=== PATIENT | male | born 1975 | race Caucasian/White ===

== ENCOUNTER 2017-12-06 17:26 | Emergency (ER) | payer OTHER ==
[~2017-12-06] VITALS: Ht 177.8 cm; Wt 80.0 kg
[2017-12-06] MEDS ORDERED: LORazepam 1 MG tablet PO ONE (17:45)
[2017-12-06] MEDS ORDERED: ketorolac trometh inj. 60 MG/2 ML VIAL IM ONE (17:45)
[2017-12-06 18:09] LABS: INR 0.9 INR; PARTIAL THROMBOPLASTIN TIME 25 SECONDS (22-32); PROTHROMBIN TIME 9.2 SECONDS (9.0-12.0)
[2017-12-06 18:15] LABS: ALANINE AMINOTRANSFERASE 110 U/L (12-78); ALBUMIN 4.2 G/DL (3.4-5.0); ALBUMIN/GLOBULIN RATIO 1.2 (1.1-1.5); ALKALINE PHOSPHATASE 75 IU/L (46-116); ANION GAP 14 (8-16); ASPARTATE AMINO TRANSFERASE 121 U/L (10-37); BILIRUBIN,TOTAL 0.5 MG/DL (0.1-1.0); BLOOD UREA NITROGEN 12 MG/DL (7-18); CALCIUM 9.2 MG/DL (8.5-10.1); CHLORIDE 103 MMOL/L (99-107); CREATININE 0.86 MG/DL (0.60-1.10); GLUCOSE 101 MG/DL (70-104); POTASSIUM 3.5 MMOL/L (3.5-5.1); SODIUM 142 MMOL/L (135-145); TOTAL PROTEIN 7.7 G/DL (6.4-8.2); eGFR > 90 ML/MIN
[2017-12-06 18:24] LABS: BASOPHILS # (AUTO) 0.1 X10'3 (0-0.2); BASOPHILS % (AUTO) 0.6 % (0-1); EOSINOPHILS # (AUTO) 0.1 X10'3 (0-0.9); EOSINOPHILS % (AUTO) 0.6 % (0-6); HEMATOCRIT 47.9 % (42.0-52.0); HEMOGLOBIN 16.2 g/dl (14.0-17.9); LYMPHOCYTES # (AUTO) 2.1 X10'3 (1.1-4.8); LYMPHOCYTES % (AUTO) 20.7 % (21-51); MEAN CORPUSCULAR HEMOGLOBIN 33.6 PG (27.0-31.0); MEAN CORPUSCULAR HGB CONC 33.8 % (33.0-36.5); MEAN CORPUSCULAR VOLUME 99.3 FL (78-98); MEAN PLATELET VOLUME 7.9 FL (7.4-10.4); MONOCYTES # (AUTO) 0.6 X10'3 (0-0.9); MONOCYTES % (AUTO) 5.7 % (2-12); NEUTROPHILS # (AUTO) 7.3 X10'3 (1.8-7.7); NEUTROPHILS % (AUTO) 72.4 % (42-75); PLATELET COUNT 124 X10'3 (140-440); RED BLOOD COUNT 4.82 X10'6 (4.70-6.10); RED CELL DISTRIBUTION WIDTH 12.7 % (11.5-14.5); WHITE BLOOD COUNT 10.2 X10'3 (4.5-11.0)
[2017-12-06] MEDS ORDERED: OMEP40CA37 PO (19:04)
[2017-12-06] MEDS ORDERED: AZIT-63 PO (19:11)
[2017-12-06 19:25] VITALS: BP 127/77
== END 2017-12-06 19:27 | disposition home or self-care (01) ==
LOC: ER 17:26
DX: R07.9 Chest pain, unspecified (principal); R10.10 Upper abdominal pain, unspecified; J44.9 Chronic obstructive pulmonary disease, unspecified; Z79.899 Other long term (current) drug therapy
CPT/HCPCS: 36415; 71045; 80053; 84484; 85025; 85610; 85730; 93005; 96372; 99285; J1885

== ENCOUNTER 2021-03-27 15:46 | Inpatient (IN) | payer BC, OTHER ==
[~2021-03-27] VITALS: Ht 175.3 cm; Wt 85.3 kg
[~2021-03-27 15:46] MED LIST: APIX5TAB5 PO; DIGO250T4 PO; FURO-149 PO; FURO40TA4 PO; LISI2.5T14 PO; METO-395 PO; OMEP40CA21 PO
[2021-03-27 16:32] LABS: ALBUMIN 3.6 G/DL (3.4-5.0); ANION GAP 15 (8-16); BLOOD UREA NITROGEN 10 MG/DL (7-18); BUN/CREATININE RATIO 10.9 (5.4-32.0); CALCIUM 8.8 MG/DL (8.5-10.1); CHLORIDE 103 MMOL/L (99-107); CREATININE 0.92 MG/DL (0.60-1.10); GLUCOSE 101 MG/DL (70-104); POTASSIUM 3.8 MMOL/L (3.5-5.1); SODIUM 145 MMOL/L (135-145); TOTAL CARBON DIOXIDE 26.8 MMOL/L (24-32); eGFR 90 ML/MIN
[2021-03-27] MEDS ORDERED: diltiazem 5mg/ml 5ml inj. IV ONE (16:35)
[2021-03-27 17:17] LABS: BASOPHILS % (AUTO) 0.7 % (0-1); EOSINOPHILS % (AUTO) 0.2 % (0-6); HEMATOCRIT 43.4 % (42.0-52.0); HEMOGLOBIN 14.4 g/dl (14.0-17.9); LYMPHOCYTES # (AUTO) 1.6 X10'3 (1.1-4.8); LYMPHOCYTES % (AUTO) 25.3 % (21-51); MEAN CORPUSCULAR HEMOGLOBIN 33.4 PG (27.0-31.0); MEAN CORPUSCULAR HGB CONC 33.2 g/dL (33.0-36.5); MEAN CORPUSCULAR VOLUME 100.7 FL (78-98); MEAN PLATELET VOLUME 8.6 FL (7.4-10.4); MONOCYTES # (AUTO) 0.4 X10'3 (0-0.9); MONOCYTES % (AUTO) 6.4 % (2-12); NEUTROPHILS # (AUTO) 4.4 X10'3 (1.8-7.7); NEUTROPHILS % (AUTO) 67.4 % (42-75); PLATELET COUNT 288 X10'3 (140-440); RED BLOOD COUNT 4.31 X10'6 (4.70-6.10); RED CELL DISTRIBUTION WIDTH 16.5 % (11.5-14.5); WHITE BLOOD COUNT 6.5 X10'3 (4.5-11.0)
[2021-03-27] MEDS ORDERED: diltiazem-NS 100mg/100ml 100 ML IV SCH (18:25)
--- NOTE | 2021-03-27 20:04 | NUR ---
MD notified of Cardizem increase and lack of effectiveness. MD instructed to turn IV back to 5.
--- NOTE | 2021-03-27 20:56 | NUR ---
Patient complaining of nausea. He states his home cardizem makes him nauseaus as well. Cardizem stopped. Pt states he is an alcoholic and drinks daily. He says his last drink was approx 1300 today.
[2021-03-27] MEDS ORDERED: temazepam 15mg capsule PO PRN (21:00)
[2021-03-27] MEDS ORDERED: ondansetron/PF 4mg/2ml inj IV ONE (21:05)
[2021-03-27] MEDS ORDERED: ondansetron 4mg rapidly disintigrating tab PO PRN (21:20)
[2021-03-27] MEDS ORDERED: morphine 2 MG/ML inj. syringe IV PRN ×2 (21:20)
[2021-03-27] MEDS ORDERED: haloperidol 5mg tablet PO PRN (21:20)
[2021-03-27] MEDS ORDERED: haloperidol lactate 5mg/ml inj IM PRN (21:20)
[2021-03-27] MEDS ORDERED: HYDROcodone/acetaminophen 5mg/325mg tablet PO PRN (21:20)
[2021-03-27] MEDS: dextrose 5%-1/2 normal saline 1,000 ML IV SCH (21:20)
[2021-03-27] MEDS ORDERED: diphenhydrAMINE 25mg capsule PO PRN (21:20)
[2021-03-27] MEDS ORDERED: mag hydrox/Alum hydrox/simeth 30ml oral suspension PO PRN ×2 (21:20)
[2021-03-27] MEDS ORDERED: diphenhydrAMINE 50 mg/ml inj IV PRN (21:20)
[2021-03-27] MEDS ORDERED: magnesium hydroxide 30ml (MOM) UD suspension PO PRN (21:20)
[2021-03-27] MEDS ORDERED: loperamide 2mg capsule PO PRN (21:20)
[2021-03-27] MEDS ORDERED: HYDROcodone/acetaminophen 10/325mg tab PO PRN (21:20)
[2021-03-27] MEDS ORDERED: bisacodyl 10mg suppository rectal RC PRN (21:20)
[2021-03-27] MEDS ORDERED: acetaminophen 325mg tablet PO PRN ×2 (21:20)
[2021-03-27] MEDS ORDERED: ondansetron/PF 4mg/2ml inj IV PRN (21:20)
[2021-03-27] MEDS ORDERED: acetaminophen 650mg rectal suppository RC PRN (21:20)
[2021-03-27] MEDS ORDERED: cyclobenzaprine 10mg tablet PO PRN (21:20)
[2021-03-27] MEDS ORDERED: dextrose 50%-water 50ml dispensing syringe IV PRN (21:20)
[2021-03-27 21:59] LABS: URINE AMPHETAMINE SCREEN NEGATIVE (Neg); URINE BARBITUATE SCREEN NEGATIVE (Neg); URINE BENZODIAZEPINES SCREEN POSITIVE (Neg); URINE CANNABINOID SCREEN POSITIVE (Neg); URINE COCAINE SCREEN NEGATIVE (Neg); URINE METHADONE SCREEN NEGATIVE (Neg); URINE OPIATE SCREEN NEGATIVE (Neg); URINE PHENCYCLIDINE SCREEN NEGATIVE (Neg)
[2021-03-27 22:03] LABS: CLARITY,URINE CLOUDY (Clear); COLOR,URINE DARK YELLOW (Yellow); UA COLLECTION TYPE CLN CATCH MIDSTREAM
[2021-03-27 22:04] LABS: GLUCOSE, URINE NEGATIVE (Neg); KETONES,URINE NEGATIVE (Neg); LEUKOCYTE ESTERASE ,URINE NEGATIVE (Neg); NITRITES, URINE NEGATIVE (Neg); OCCULT BLOOD,URINE NEGATIVE (Neg); PROTEIN,URINE >=300 mg/dl (Neg)
[2021-03-27 22:09] LABS: BACTERIA,URINE 1+ /HPF (Neg); MUCUS STRANDS MANY /LPF (Neg); RBC,URINE NONE SEEN /HPF (0-2); SQUAMOUS EPITHELIAL CELL,UR MANY /LPF (FEW); WBC,URINE 0-4 /HPF (0-4)
[2021-03-27 22:10] LABS: AMORPHOUS URATES 4+
[2021-03-27 22:11] LABS: PARTIAL THROMBOPLASTIN TIME 28 SECONDS (22-32)
[2021-03-27] MEDS: LORazepam 2 mg/ml vial IV PRN ×2 (22:39→23:39)
[2021-03-27 23:46] LABS: CREATINE KINASE 74 U/L (39-308); ETHANOL 0.196 GM/DL (0.0-0.010); LIPASE 70 U/L (73-393); MAGNESIUM 1.3 MG/DL (1.5-2.4); PHOSPHORUS 4.8 MG/DL (2.3-4.5)
[2021-03-28] MEDS ORDERED: metoprolol tartrate 1mg/ml inj IV SCH (00:25)
[2021-03-28] MEDS ORDERED: ringers solution, lactated 1000ml IV soln IV ONE (00:25)
[2021-03-28] MEDS ORDERED: LIDOcaine 2% 10ml TOPICAL JELLY (Urojet) TP ONE ×2 (00:25→20:45)
[2021-03-28] MEDS: metoprolol tartrate 1mg/ml inj IV PRN ×2 (01:10→11:07)
--- NOTE | 2021-03-28 01:46 | NUR ---
Pt produced approx 50 ml of dark urine
[2021-03-28] MEDS ORDERED: magnesium 4gm in 100ml NS 100 ML IV PRN (02:30)
[2021-03-28] MEDS ORDERED: magnesium Cl slow-release 64mg tablet PO PRN (02:30)
[2021-03-28] MEDS ORDERED: magnesium 2GM in 50ml NS 50 ML IV PRN (02:30)
[2021-03-28] MEDS: LORazepam 2 mg/ml vial IV PRN ×6 (02:31→22:37)
[2021-03-28] MEDS ORDERED: digoxin 250mcg/ml 2ml ampule IV ONE ×2 (02:45→23:15)
--- NOTE | 2021-03-28 02:52 | NUR ---
Pt declines Palma if not absolutely necessary.
[2021-03-28] MEDS: docusate sod 100mg capsule PO SCH ×2 (07:27→20:00)
[2021-03-28] MEDS: folic acid 1mg tablet PO SCH (07:30)
[2021-03-28] MEDS: nicotine 21mg patch - 24 hr TD SCH (07:30)
[2021-03-28] MEDS: multivitamins, therapeutics tablet PO SCH (07:30)
[2021-03-28] MEDS: thiamine 100mg tablet PO SCH (07:31)
[2021-03-28] MEDS ORDERED: heparin, porcine 5000 units/ml vial SQ SCH (08:00)
[2021-03-28] MEDS ORDERED: folic acid inj. 2 MG, thiamine inj. 100 MG, MVI, adult No.4 with vit. K 10 ML in dextro... IV SCH ×4 (08:00)
[2021-03-28 09:37] LABS: D-DIMER 1.59 MG/L FEU (0-0.50)
[2021-03-28 09:42] LABS: ALANINE AMINOTRANSFERASE 103 U/L (12-78); ALBUMIN 3.1 G/DL (3.4-5.0); ALBUMIN/GLOBULIN RATIO 0.9 (1.1-1.5); ALKALINE PHOSPHATASE 95 IU/L (46-116); ANION GAP 11 (8-16); ASPARTATE AMINO TRANSFERASE 243 U/L (10-37); BASOPHILS # (AUTO) 0.1 X10'3 (0-0.2); BILIRUBIN,TOTAL 1.9 MG/DL (0.1-1.0); BLOOD UREA NITROGEN 10 MG/DL (7-18); BUN/CREATININE RATIO 13.9 (5.4-32.0); CALCIUM 8.1 MG/DL (8.5-10.1); CHLORIDE 107 MMOL/L (99-107); CREATININE 0.72 MG/DL (0.60-1.10); GLUCOSE 84 MG/DL (70-104); HEMOGLOBIN 13.5 g/dl (14.0-17.9); LYMPHOCYTES # (AUTO) 1.5 X10'3 (1.1-4.8); MEAN CORPUSCULAR HGB CONC 33.6 g/dL (33.0-36.5); MONOCYTES # (AUTO) 0.8 X10'3 (0-0.9); NEUTROPHILS # (AUTO) 4.5 X10'3 (1.8-7.7); POTASSIUM 3.9 MMOL/L (3.5-5.1); RED BLOOD COUNT 3.97 X10'6 (4.70-6.10); SODIUM 141 MMOL/L (135-145); TOTAL CARBON DIOXIDE 23.3 MMOL/L (24-32); TOTAL PROTEIN 6.4 G/DL (6.4-8.2); eGFR > 90 ML/MIN
[2021-03-28 09:46] LABS: BASOPHILS % (AUTO) 1.6 % (0-1); CHOL/HDL RATIO 3.3 (0.00-4.99); CHOLESTEROL 149 MG/DL (0-200); EOSINOPHILS % (AUTO) 0.3 % (0-6); HDL CHOLESTEROL 45 MG/DL (35-60); HEMATOCRIT 40.2 % (42.0-52.0); LDL CHOLESTEROL 100 MG/DL (50-100); LYMPHOCYTES % (AUTO) 21.6 % (21-51); MEAN CORPUSCULAR HEMOGLOBIN 34.1 PG (27.0-31.0); MEAN CORPUSCULAR VOLUME 101.3 FL (78-98); MEAN PLATELET VOLUME 8.7 FL (7.4-10.4); MONOCYTES % (AUTO) 11.5 % (2-12); PLATELET COUNT 229 X10'3 (140-440); RED CELL DISTRIBUTION WIDTH 16.5 % (11.5-14.5); TRIGLYCERIDES 69 MG/DL (20-135)
--- NOTE | 2021-03-28 10:44 | NUR ---
Dr. Dasilva notified of pt not tolerating cardizem asked for alternative. Order given to admin 5 mg of lopressor
[2021-03-28] MEDS ORDERED: DIGO250T2 PO (12:09)
[2021-03-28] MEDS ORDERED: DILT-36 PO (12:09)
[2021-03-28] MEDS ORDERED: LISI2.5T89 PO (12:09)
[2021-03-28] MEDS ORDERED: METO-384 PO (12:09)
[2021-03-28] MEDS: digoxin 250mcg (0.25mg) tablet PO SCH (12:55)
[2021-03-28] MEDS: furosemide 40mg tablet PO SCH (12:56)
[2021-03-28] MEDS: lisinopril 2.5mg tablet PO SCH (12:56)
[2021-03-28] MEDS: dextrose 5%-1/2 normal saline 1,000 ML IV SCH (17:26)
[2021-03-28] MEDS ORDERED: amiodarone 50MG/ML inj IV ONE (20:45)
[2021-03-28] MEDS: apixaban 5mg tablet PO SCH (20:53)
[2021-03-28] MEDS ORDERED: amiodarone 150mg/dext, iso-os 100 ML IV ONE (20:55)
[2021-03-28 23:09] LABS: CREATINE KINASE 82 U/L (39-308); MAGNESIUM 1.7 MG/DL (1.5-2.4); PHOSPHORUS 3.6 MG/DL (2.3-4.5)
[2021-03-28 23:10] LABS: LIPASE 68 U/L (73-393); TROPONIN I < 0.04 NG/ML (0.0-0.05)
[2021-03-28] MEDS ORDERED: LORazepam 2 mg/ml vial IV ONE (23:15)
--- NOTE | 2021-03-29 00:02 | NUR ---
Pt report given to VIRGILIO Lira in PCU. Pt is in stable condition at this time. Pt's HR is currently 141 in afib with rvr, on 2L of O2 via NC sating at 93%. Pt was given 2mg of ativan at 2316, and 1mg of ativan 2342. No change in HR. In addition, 125mcg (0.5mL) of dixogin was given and still no change in HR. Dr. Monson paged several time, and the request of RN asked several times to place patient on an amiodarone drip. Dr. Coles has ignored my request.
[2021-03-29 00:38] VITALS: BP 142/85
[2021-03-29 07:17] LABS: BASOPHILS # (AUTO) 0.1 X10'3 (0-0.2); BASOPHILS % (AUTO) 0.8 % (0-1); EOSINOPHILS % (AUTO) 0.5 % (0-6); HEMATOCRIT 43.3 % (42.0-52.0); HEMOGLOBIN 14.6 g/dl (14.0-17.9); LYMPHOCYTES # (AUTO) 1.1 X10'3 (1.1-4.8); LYMPHOCYTES % (AUTO) 14.6 % (21-51); MEAN CORPUSCULAR HEMOGLOBIN 34.4 PG (27.0-31.0); MEAN CORPUSCULAR HGB CONC 33.8 g/dL (33.0-36.5); MEAN CORPUSCULAR VOLUME 101.8 FL (78-98); MEAN PLATELET VOLUME 9.3 FL (7.4-10.4); MONOCYTES # (AUTO) 0.8 X10'3 (0-0.9); MONOCYTES % (AUTO) 10.2 % (2-12); NEUTROPHILS # (AUTO) 5.7 X10'3 (1.8-7.7); NEUTROPHILS % (AUTO) 73.9 % (42-75); PLATELET COUNT 213 X10'3 (140-440); RED BLOOD COUNT 4.25 X10'6 (4.70-6.10); RED CELL DISTRIBUTION WIDTH 16.6 % (11.5-14.5); WHITE BLOOD COUNT 7.7 X10'3 (4.5-11.0)
[2021-03-29 07:31] LABS: ALANINE AMINOTRANSFERASE 97 U/L (12-78); ALKALINE PHOSPHATASE 91 IU/L (46-116); ANION GAP 10 (8-16); ASPARTATE AMINO TRANSFERASE 189 U/L (10-37); BILIRUBIN,TOTAL 2.9 MG/DL (0.1-1.0); BLOOD UREA NITROGEN 9 MG/DL (7-18); BUN/CREATININE RATIO 10.5 (5.4-32.0); CALCIUM 8.2 MG/DL (8.5-10.1); CHLORIDE 105 MMOL/L (99-107); CREATININE 0.86 MG/DL (0.60-1.10); GLUCOSE 85 MG/DL (70-104); MAGNESIUM 1.6 MG/DL (1.5-2.4); POTASSIUM 3.4 MMOL/L (3.5-5.1); SODIUM 143 MMOL/L (135-145); TOTAL CARBON DIOXIDE 28.5 MMOL/L (24-32); TOTAL PROTEIN 5.9 G/DL (6.4-8.2); eGFR > 90 ML/MIN
[2021-03-29] MEDS: multivitamins, therapeutics tablet PO SCH (08:08)
[2021-03-29] MEDS: lisinopril 2.5mg tablet PO SCH (08:09)
[2021-03-29] MEDS: furosemide 40mg tablet PO SCH (08:10)
[2021-03-29] MEDS: docusate sod 100mg capsule PO SCH ×2 (08:10→19:56)
[2021-03-29] MEDS: thiamine 100mg tablet PO SCH (08:10)
[2021-03-29] MEDS: apixaban 5mg tablet PO SCH ×2 (08:10→19:56)
[2021-03-29] MEDS: digoxin 250mcg (0.25mg) tablet PO SCH (08:11)
[2021-03-29] MEDS: folic acid 1mg tablet PO SCH (08:11)
[2021-03-29] MEDS: metoprolol succinate 25mg (24-HOUR) SR. Tablet PO SCH (08:12)
[2021-03-29] MEDS: lisinopril 5mg tablet PO SCH (09:50)
[2021-03-29 11:05] VITALS: BP 134/92
[2021-03-29] MEDS: LORazepam 2 mg/ml vial IV PRN (12:35)
[2021-03-29 18:00] VITALS: BP 129/89
[2021-03-29] MEDS ORDERED: LORazepam 1 MG tablet PO PRN (21:20)
[2021-03-29] MEDS ORDERED: LORazepam 2 mg/ml vial IV PRN (21:20)
[2021-03-29 22:00] VITALS: BP 114/75
[2021-03-30] MEDS ORDERED: potassium Cl 20 mEq SR tablet PO PRN (01:25)
[2021-03-30] MEDS ORDERED: potassium Cl 40MEQ/1/2NS 520ml 520 ML IV PRN (01:25)
[2021-03-30] MEDS ORDERED: magnesium 4gm in 100ml NS 100 ML IV PRN (01:25)
[2021-03-30] MEDS ORDERED: magnesium Cl slow-release 64mg tablet PO PRN ×2 (01:25→08:56)
[2021-03-30] MEDS: potassium Cl 20 mEq SR tablet PO PRN ×2 (02:40→06:35)
[2021-03-30 03:39] VITALS: BP 107/66
[2021-03-30 06:00] VITALS: BP 118/81
[2021-03-30 06:50] LABS: BASOPHILS # (AUTO) 0.1 X10'3 (0-0.2); BASOPHILS % (AUTO) 0.8 % (0-1); EOSINOPHILS # (AUTO) 0.1 X10'3 (0-0.9); EOSINOPHILS % (AUTO) 0.9 % (0-6); HEMATOCRIT 42.9 % (42.0-52.0); HEMOGLOBIN 14.3 g/dl (14.0-17.9); LYMPHOCYTES # (AUTO) 1.3 X10'3 (1.1-4.8); LYMPHOCYTES % (AUTO) 18.1 % (21-51); MEAN CORPUSCULAR HEMOGLOBIN 33.7 PG (27.0-31.0); MEAN CORPUSCULAR HGB CONC 33.3 g/dL (33.0-36.5); MEAN CORPUSCULAR VOLUME 101.3 FL (78-98); MEAN PLATELET VOLUME 8.6 FL (7.4-10.4); MONOCYTES # (AUTO) 0.7 X10'3 (0-0.9); MONOCYTES % (AUTO) 9.3 % (2-12); NEUTROPHILS % (AUTO) 70.9 % (42-75); PLATELET COUNT 204 X10'3 (140-440); RED BLOOD COUNT 4.24 X10'6 (4.70-6.10); RED CELL DISTRIBUTION WIDTH 16.7 % (11.5-14.5)
[2021-03-30 07:08] LABS: ALANINE AMINOTRANSFERASE 67 U/L (12-78); ALBUMIN 2.6 G/DL (3.4-5.0); ALBUMIN/GLOBULIN RATIO 0.9 (1.1-1.5); ALKALINE PHOSPHATASE 80 IU/L (46-116); ANION GAP 7 (8-16); ASPARTATE AMINO TRANSFERASE 93 U/L (10-37); BILIRUBIN,TOTAL 2.8 MG/DL (0.1-1.0); BLOOD UREA NITROGEN 9 MG/DL (7-18); BUN/CREATININE RATIO 10.7 (5.4-32.0); CALCIUM 7.8 MG/DL (8.5-10.1); CHLORIDE 106 MMOL/L (99-107); CREATININE 0.84 MG/DL (0.60-1.10); GLUCOSE 98 MG/DL (70-104); MAGNESIUM 1.3 MG/DL (1.5-2.4); POTASSIUM 3.5 MMOL/L (3.5-5.1); SODIUM 142 MMOL/L (135-145); TOTAL CARBON DIOXIDE 28.8 MMOL/L (24-32); TOTAL PROTEIN 5.4 G/DL (6.4-8.2); eGFR > 90 ML/MIN
[2021-03-30] MEDS: docusate sod 100mg capsule PO SCH (07:59)
[2021-03-30] MEDS: metoprolol succinate 25mg (24-HOUR) SR. Tablet PO SCH (07:59)
[2021-03-30] MEDS: multivitamins, therapeutics tablet PO SCH (07:59)
[2021-03-30] MEDS: nicotine 21mg patch - 24 hr TD SCH ×2 (07:59→08:03)
[2021-03-30 08:00] VITALS: BP_SYST 118
[2021-03-30] MEDS: furosemide 40mg tablet PO SCH (08:00)
[2021-03-30] MEDS ORDERED: K and/or MAG REPLACEMENT MC SCH (08:00)
[2021-03-30] MEDS: thiamine 100mg tablet PO SCH (08:00)
[2021-03-30] MEDS: lisinopril 5mg tablet PO SCH (08:00)
[2021-03-30] MEDS: folic acid 1mg tablet PO SCH (08:00)
[2021-03-30] MEDS: digoxin 250mcg (0.25mg) tablet PO SCH (08:01)
[2021-03-30] MEDS: apixaban 5mg tablet PO SCH (08:01)
[2021-03-30] MEDS ORDERED: metoprolol succinate 25mg (24-HOUR) SR. Tablet PO ONE (09:45)
--- NOTE | 2021-03-30 10:31 | NUR ---
Met with patient in regards to alcohol use. I asked patient if he is interested in treatment options but patient declined. Patient feels like he has support at home and doesn't need other sources at this time. I gave patient my card in case he changes his mind.
[2021-03-30] MEDS ORDERED: METO-384 PO (10:37)
--- NOTE | 2021-03-30 12:07 | NUR ---
patient stable and comfortable at discharge. Removed telemetry and PIV with cannula intact. No redness or irritation at PIV site. All belongings placed in bag and given to patient at discharge. Patient will pick out hand new medications at [facility]. Patient spoke with [facility] on the phone and medications are ready for pick out hand. Gave and discussed all patient information and patient education in detail. Patient was able to ask questions and receive answers about patient information and patient education. Patient was able to verbalize back all patient information and patient education. Patient was wheeled to lobby in wheelchair by staff member. Patient left hospital in private car with family member.
[2021-03-31] MEDS ORDERED: metoprolol succinate 25mg (24-HOUR) SR. Tablet PO SCH (08:00)
[2021-03-31] MEDS ORDERED: LORazepam 2 mg/ml vial IV PRN (21:20)
[2021-03-31] MEDS ORDERED: LORazepam 1 MG tablet PO PRN (21:20)
== END 2021-03-30 12:05 | disposition home or self-care (01) | DRG 309 ==
LOC: ER 15:47 → ED HOLD 21:27 → PCU 3S 03-29 00:15
PROVIDERS: ADMIT Family Medicine; ATTEND Internal Medicine
DX: I48.91 Unspecified atrial fibrillation (principal); I50.22 Chronic systolic (congestive) heart failure; F10.239 Alcohol dependence with withdrawal, unspecified; I42.0 Dilated cardiomyopathy; I42.6 Alcoholic cardiomyopathy; J44.9 Chronic obstructive pulmonary disease, unspecified; K70.10 Alcoholic hepatitis without ascites; F17.200 Nicotine dependence, unspecified, uncomplicated; F10.229 Alcohol dependence with intoxication, unspecified; E83.42 Hypomagnesemia; E86.1 Hypovolemia; R79.89 Other specified abnormal findings of blood chemistry; F12.10 Cannabis abuse, uncomplicated; Y90.6 Blood alcohol level of 120-199 mg/100 ml; I08.1 Rheumatic disorders of both mitral and tricuspid valves; Z82.49 Family history of ischemic heart disease and other diseases of the circulatory system; Z85.820 Personal history of malignant melanoma of skin; Z79.899 Other long term (current) drug therapy; Z80.8 Family history of malignant neoplasm of other organs or systems; Z83.3 Family history of diabetes mellitus; Z86.73 Personal history of transient ischemic attack (TIA), and cerebral infarction without residual deficits; Z79.01 Long term (current) use of anticoagulants; Z71.6 Tobacco abuse counseling; Z88.8 Allergy status to other drugs, medicaments and biological substances
CPT/HCPCS: 36415; 70450; 71045; 72125; 80048; 80053; 80061; 80162; 80305; 80320; 81001; 82550; 83036; 83605; 83690; 83735; 83880; 84100; 84443; 84484; 85025; 85379; 85610; 85730; 87081; 93005; 96361; 96365; 96376; 99291; G0378; J1160; J1644; J2060; J2405; J3475; J3490; J7120

== ENCOUNTER 2021-05-25 08:41 | Inpatient (IN) | payer MEDICAID ==
[~2021-05-25] VITALS: Ht 167.6 cm; Wt 92.3 kg
[~2021-05-25 08:41] MED LIST changes: +DIGO250T2 PO; -DIGO250T4 PO; -FURO-149 PO; -LISI2.5T14 PO; +LISI2.5T89 PO; +METO-384 PO; -METO-395 PO; +MULT-25 PO; +POTA-207 PO; +folic acid tablet PO; +thiamine tablet PO
[2021-05-25] MEDS ORDERED: furosemide 10 MG/1 ML 10ml inj IV ONE ×2 (08:50→20:10)
[2021-05-25] MEDS ORDERED: digoxin 250mcg/ml 2ml ampule IV ONE (09:05)
[2021-05-25 09:13] LABS: BASOPHILS # (AUTO) 0.1 X10'3 (0-0.2); BASOPHILS % (AUTO) 0.9 % (0-1); EOSINOPHILS # (AUTO) 0.1 X10'3 (0-0.9); EOSINOPHILS % (AUTO) 0.7 % (0-6); HEMATOCRIT 42.1 % (42.0-52.0); HEMOGLOBIN 14.2 g/dl (14.0-17.9); LYMPHOCYTES # (AUTO) 1.2 X10'3 (1.1-4.8); LYMPHOCYTES % (AUTO) 18.1 % (21-51); MEAN CORPUSCULAR HEMOGLOBIN 34.4 PG (27.0-31.0); MEAN CORPUSCULAR HGB CONC 33.8 g/dL (33.0-36.5); MEAN CORPUSCULAR VOLUME 101.9 FL (78-98); MONOCYTES # (AUTO) 0.6 X10'3 (0-0.9); MONOCYTES % (AUTO) 9.5 % (2-12); NEUTROPHILS # (AUTO) 4.8 X10'3 (1.8-7.7); NEUTROPHILS % (AUTO) 70.8 % (42-75); PLATELET COUNT 348 X10'3 (140-440); RED BLOOD COUNT 4.13 X10'6 (4.70-6.10); RED CELL DISTRIBUTION WIDTH 16.7 % (11.5-14.5); WHITE BLOOD COUNT 6.7 X10'3 (4.5-11.0)
[2021-05-25 09:21] LABS: ALANINE AMINOTRANSFERASE 21 U/L (12-78); ALBUMIN/GLOBULIN RATIO 0.9 (1.1-1.5); ALKALINE PHOSPHATASE 91 IU/L (46-116); ANION GAP 6 (8-16); ASPARTATE AMINO TRANSFERASE 16 U/L (10-37); BILIRUBIN,TOTAL 1.2 MG/DL (0.1-1.0); BLOOD UREA NITROGEN 17 MG/DL (7-18); BUN/CREATININE RATIO 18.1 (5.4-32.0); CALCIUM 8.8 MG/DL (8.5-10.1); CHLORIDE 100 MMOL/L (99-107); CREATININE 0.94 MG/DL (0.60-1.10); GLUCOSE 109 MG/DL (70-104); POTASSIUM 4.4 MMOL/L (3.5-5.1); SODIUM 136 MMOL/L (135-145); TOTAL CARBON DIOXIDE 30.4 MMOL/L (24-32); TOTAL PROTEIN 6.4 G/DL (6.4-8.2); eGFR 88 ML/MIN
[2021-05-25] MEDS ORDERED: amiodarone 150mg/dext, iso-os 100 ML IV ONE (09:50)
[2021-05-25] MEDS: amiodarone/D5 360MG/200ML BAG 200 ML IV SCH ×3 (10:41→23:46)
[2021-05-25] MEDS ORDERED: metoprolol tartrate 1mg/ml inj IV ONE (10:55)
[2021-05-25] MEDS ORDERED: ESCI5TAB17 PO (12:16)
[2021-05-25] MEDS ORDERED: POTA-82 PO (12:16)
[2021-05-25] MEDS ORDERED: HYDR-3686 PO (12:16)
[2021-05-25] MEDS ORDERED: FURO40TA4 PO (12:16)
[2021-05-25] MEDS ORDERED: APIX5TAB3 PO (12:29)
[2021-05-25] MEDS ORDERED: ondansetron 4mg rapidly disintigrating tab PO PRN (13:00)
[2021-05-25] MEDS ORDERED: acetaminophen 325mg tablet PO PRN (13:00)
[2021-05-25] MEDS ORDERED: magnesium 4gm in 100ml NS 100 ML IV PRN (13:00)
[2021-05-25] MEDS ORDERED: magnesium Cl slow-release 64mg tablet PO PRN (13:00)
[2021-05-25] MEDS ORDERED: ondansetron/PF 4mg/2ml inj IV PRN (13:00)
[2021-05-25] MEDS ORDERED: potassium CL 10mEq/100ml bag 100 ML IV PRN (13:00)
[2021-05-25] MEDS ORDERED: magnesium 2GM in 50ml NS 50 ML IV PRN (13:00)
[2021-05-25] MEDS ORDERED: potassium Cl 20 mEq SR tablet PO PRN ×2 (13:00)
[2021-05-25 13:23] LABS: MAGNESIUM 1.7 MG/DL (1.5-2.4)
[2021-05-25] MEDS: metoprolol succinate 25mg (24-HOUR) SR. Tablet PO SCH (17:24)
--- NOTE | 2021-05-25 19:56 | NUR ---
PT COMPLAINING OF ANXIETY. HEART RATE IS STILL RAPID. PAGED DR JONES.
[2021-05-25] MEDS: K and/or MAG REPLACEMENT MC SCH (19:57)
--- NOTE | 2021-05-25 19:58 | NUR ---
DR JONES PAGED AT 2000 TO TALK TO KURT POOLE
[2021-05-25 20:00] VITALS: BP_SYST 0
[2021-05-26] VITALS (8 sets, daily range): BP systolic 0–145; BP diastolic 72–90
[2021-05-26 01:04] LABS: BASOPHILS # (AUTO) 0.1 X10'3 (0-0.2); BASOPHILS % (AUTO) 1.2 % (0-1); EOSINOPHILS % (AUTO) 0.3 % (0-6); HEMATOCRIT 43.7 % (42.0-52.0); HEMOGLOBIN 14.8 g/dl (14.0-17.9); LYMPHOCYTES # (AUTO) 1.2 X10'3 (1.1-4.8); LYMPHOCYTES % (AUTO) 15.4 % (21-51); MEAN CORPUSCULAR HGB CONC 33.8 g/dL (33.0-36.5); MEAN CORPUSCULAR VOLUME 100.8 FL (78-98); MEAN PLATELET VOLUME 9.4 FL (7.4-10.4); MONOCYTES # (AUTO) 0.7 X10'3 (0-0.9); MONOCYTES % (AUTO) 8.6 % (2-12); NEUTROPHILS # (AUTO) 5.8 X10'3 (1.8-7.7); NEUTROPHILS % (AUTO) 74.5 % (42-75); PLATELET COUNT 381 X10'3 (140-440); RED BLOOD COUNT 4.34 X10'6 (4.70-6.10); RED CELL DISTRIBUTION WIDTH 16.3 % (11.5-14.5); WHITE BLOOD COUNT 7.7 X10'3 (4.5-11.0)
[2021-05-26 01:25] LABS: ALBUMIN 3.2 G/DL (3.4-5.0); ANION GAP 8 (8-16); BLOOD UREA NITROGEN 16 MG/DL (7-18); CALCIUM 8.9 MG/DL (8.5-10.1); CHLORIDE 97 MMOL/L (99-107); CREATININE 1.07 MG/DL (0.60-1.10); GLUCOSE 99 MG/DL (70-104); MAGNESIUM 1.6 MG/DL (1.5-2.4); SODIUM 134 MMOL/L (135-145); TOTAL CARBON DIOXIDE 29.1 MMOL/L (24-32); eGFR 75 ML/MIN
--- NOTE | 2021-05-26 02:57 | NUR ---
Recieved report from Lia POOLE, Pt arrived to the unit via gurney. Pt is laying in bed in no apparaent distress, vitals were taking and connected to tele monitor.
[2021-05-26] MEDS: amiodarone/D5 360MG/200ML BAG 200 ML IV SCH ×4 (04:25→22:33)
--- NOTE | 2021-05-26 05:52 | NUR ---
Did not do the orthostatic vitals due at 1999 because pt was in ER. Will leave sign on door.
--- NOTE | 2021-05-26 06:12 | NUR ---
Problems reprioritized. Patient report given, questions answered & plan of care reviewed with Marielle POOLE.
[2021-05-26] MEDS: K and/or MAG REPLACEMENT MC SCH ×2 (08:00→20:00)
[2021-05-26] MEDS: furosemide 40mg/4ml inj IV SCH ×2 (08:40→19:42)
[2021-05-26] MEDS: metoprolol succinate 25mg (24-HOUR) SR. Tablet PO SCH (08:42)
[2021-05-26] MEDS: apixaban 5mg tablet PO SCH ×2 (08:42→19:42)
--- NOTE | 2021-05-26 14:44 | NUR ---
PAGER ID: [phone] MESSAGE: [phone] Manuelito Corral- States you said you were going to order him a paracentesis? Marielle [id number]
--- NOTE | 2021-05-26 16:01 | NUR ---
PAGER ID: [phone] MESSAGE: [phone] Manuelito Corral- Pt vomitted. Zofran ODT ineffective. Requests paracentesis. Marielle [phone]
--- NOTE | 2021-05-26 17:00 | NUR ---
PAGER ID: [phone] MESSAGE: [phone] Manuelito Corral- Pt c/o having difficulty breathing and increased edematous BLE and abdomen. Marielle [phone]
--- NOTE | 2021-05-26 17:15 | NUR ---
Patient states he is having an anxiety attack. He states he has felt this way in the past and when he feels this way he wants to shoot himself in the head. Dr. Dasilva paged and order placed for social service consult. Charge nurse informed.
--- NOTE | 2021-05-26 17:16 | NUR ---
PAGER ID: [phone] MESSAGE: [phone] Manuelito Corral- Keenan Palomares [phone]
--- NOTE | 2021-05-26 17:27 | NUR ---
PAGER ID: [phone] MESSAGE: [phone] Manuelito Corral- Having anxiety attack with suicidal ideations. Marielle [phone]
--- NOTE | 2021-05-26 17:32 | NUR ---
Dr. aDsilva called back. Order placed for social worker delinquency prevention, sitter, and Ativan 1mg q8 PRN.
[2021-05-26] MEDS: LORazepam 2 mg/ml vial IV PRN (17:48)
--- NOTE | 2021-05-26 18:22 | NUR ---
Problems reprioritized. Patient report given, questions answered & plan of care reviewed with Jesica POOLE.
[2021-05-27 02:00] VITALS: BP 127/91
[2021-05-27] MEDS: LORazepam 2 mg/ml vial IV PRN (02:13)
[2021-05-27] MEDS: amiodarone/D5 360MG/200ML BAG 200 ML IV SCH ×2 (04:25→10:25)
--- NOTE | 2021-05-27 06:30 | NUR ---
Problems reprioritized. Patient report given, questions answered & plan of care reviewed with Estephanie POOLE.
--- NOTE | 2021-05-27 06:37 | NUR ---
Patient in room PCU 3012. I have received report from Jesica POOLE and had the opportunity to ask questions and assume patient care. Pt semi fowlers in bed, chest rising and falling evenly. sitter at bedside. safety measures in place. no s/sx acute distress
[2021-05-27 06:41] LABS: ALBUMIN 2.6 G/DL (3.4-5.0); ANION GAP 6 (8-16); BLOOD UREA NITROGEN 21 MG/DL (7-18); BUN/CREATININE RATIO 19.3 (5.4-32.0); CALCIUM 8.1 MG/DL (8.5-10.1); CHLORIDE 100 MMOL/L (99-107); CREATININE 1.09 MG/DL (0.60-1.10); GLUCOSE 90 MG/DL (70-104); MAGNESIUM 1.5 MG/DL (1.5-2.4); POTASSIUM 3.7 MMOL/L (3.5-5.1); SODIUM 136 MMOL/L (135-145); TOTAL CARBON DIOXIDE 29.6 MMOL/L (24-32); eGFR 74 ML/MIN
[2021-05-27 06:44] LABS: BASOPHILS # (AUTO) 0.1 X10'3 (0-0.2); BASOPHILS % (AUTO) 1.1 % (0-1); EOSINOPHILS % (AUTO) 0.5 % (0-6); HEMATOCRIT 42.3 % (42.0-52.0); HEMOGLOBIN 14.2 g/dl (14.0-17.9); LYMPHOCYTES # (AUTO) 1.3 X10'3 (1.1-4.8); MEAN CORPUSCULAR HEMOGLOBIN 33.8 PG (27.0-31.0); MEAN CORPUSCULAR HGB CONC 33.6 g/dL (33.0-36.5); MEAN CORPUSCULAR VOLUME 100.7 FL (78-98); MEAN PLATELET VOLUME 9.1 FL (7.4-10.4); MONOCYTES # (AUTO) 0.8 X10'3 (0-0.9); MONOCYTES % (AUTO) 12.6 % (2-12); NEUTROPHILS # (AUTO) 4.5 X10'3 (1.8-7.7); NEUTROPHILS % (AUTO) 66.8 % (42-75); PLATELET COUNT 359 X10'3 (140-440); RED CELL DISTRIBUTION WIDTH 16.4 % (11.5-14.5); WHITE BLOOD COUNT 6.7 X10'3 (4.5-11.0)
[2021-05-27 07:00] VITALS: BP 113/82
[2021-05-27] MEDS: K and/or MAG REPLACEMENT MC SCH (08:00)
--- NOTE | 2021-05-27 08:00 | NUR ---
spoke openly with pt. Pt endorses "fine" mood, and is engaged in conversation with the sitter and this nurse. pt denies SI. "no i don't. honestly that was just a joke yesterday when i said it." pt speaks openly about health status and ETOH cessation x 1 month. pt endorses strong support system. sitter at bedside. no s/sx acute distress
[2021-05-27] MEDS: furosemide 40mg/4ml inj IV SCH (08:13)
[2021-05-27] MEDS: metoprolol succinate 25mg (24-HOUR) SR. Tablet PO SCH (08:13)
[2021-05-27] MEDS: apixaban 5mg tablet PO SCH (08:13)
[2021-05-27 11:00] VITALS: BP 99/57
[2021-05-27] MEDS ORDERED: METO-395 PO (12:36)
[2021-05-27 13:00] VITALS: BP 113/94
[2021-05-27 13:47] VITALS: BP 134/75
[2021-05-27 15:00] VITALS: BP 108/80
--- NOTE | 2021-05-27 16:50 | NUR ---
Pt stated he has no lasix supply at home. lasix on discharge med list. Dr. Dasilva notified and asked if 30 day supply could be called in for the pt. awaiting response from Dr. Dasilva
--- NOTE | 2021-05-27 17:00 | NUR ---
pt stable for transfer per MD order All discharge instructions reviewed with pt. all questions answered. follow up appointment with Dr. Pike to be made by pt. pt has preexisting appt with PCP on the . New rx escripted to [facility]. PIC discontinued. cannula intact. tele monitor discontinued. belongings collected and sent with pt including cell phone and branch chief. pt wheeled to the lobby without s/sx acute distress where he loaded into his mom's car and left [facility].
[2021-05-27] MEDS ORDERED: LISI2.5T14 PO (17:23)
[2021-05-27] MEDS ORDERED: DIGO-20 PO (17:23)
[2021-05-27] MEDS ORDERED: APIX5TAB3 PO (17:24)
[2021-05-27] MEDS ORDERED: POTA-207 PO (17:25)
[2021-05-27] MEDS ORDERED: FURO-149 PO (17:25)
== END 2021-05-27 17:01 | disposition home or self-care (01) | DRG 194 ==
LOC: ER 08:42 → ED HOLD 13:04 → PCU 3S 05-26 03:41
PROVIDERS: ADMIT Internal Medicine; ATTEND Internal Medicine
PROC: 0W9G3ZZ Drainage of Peritoneal Cavity, Percutaneous Approach (ICD-10-PCS; principal; 2021-05-27)
DX: I50.23 Acute on chronic systolic (congestive) heart failure (principal); K70.31 Alcoholic cirrhosis of liver with ascites; I95.9 Hypotension, unspecified; I42.9 Cardiomyopathy, unspecified; I48.20 Chronic atrial fibrillation, unspecified; E78.00 Pure hypercholesterolemia, unspecified; E78.5 Hyperlipidemia, unspecified; F10.21 Alcohol dependence, in remission; F17.210 Nicotine dependence, cigarettes, uncomplicated; J44.9 Chronic obstructive pulmonary disease, unspecified; N18.9 Chronic kidney disease, unspecified; N50.89 Other specified disorders of the male genital organs; Z80.8 Family history of malignant neoplasm of other organs or systems; Z82.49 Family history of ischemic heart disease and other diseases of the circulatory system; Z83.3 Family history of diabetes mellitus; Z91.14 Patient's other noncompliance with medication regimen; Z79.899 Other long term (current) drug therapy; Z88.8 Allergy status to other drugs, medicaments and biological substances; Z71.6 Tobacco abuse counseling
CPT/HCPCS: 36415; 49083; 71045; 80048; 80053; 80162; 82140; 83735; 83880; 84484; 85025; 85610; 86885; 86900; 86901; 87081; 93005; 97110; 97161; 97530; 99291; G0378; J0282; J1160; J1940; J2060; J2405; J3490

== ENCOUNTER 2021-06-15 07:17 | Inpatient (IN) | payer MEDICAID ==
[~2021-06-15] VITALS: Ht 170.2 cm; Wt 81.8 kg
[~2021-06-15 07:17] MED LIST changes: +APIX5TAB3 PO; -APIX5TAB5 PO; +DIGO-20 PO; -DIGO250T2 PO; +FURO-149 PO; -FURO40TA4 PO; +LISI2.5T14 PO; -LISI2.5T89 PO; -METO-384 PO; +METO-395 PO; -MULT-25 PO; -OMEP40CA21 PO; -folic acid tablet PO; -thiamine tablet PO
[2021-06-15] MEDS ORDERED: amiodarone/D5 360MG/200ML BAG 200 ML IV ONE (09:55)
--- NOTE | 2021-06-15 10:21 | NUR ---
PT REQUESTING WATER AND SOMETHING FOR HIS ANXIETY. PT GIVEN A PITCHER OF WATER AND DR MCCALL'S SCRIBE WAS ASKED TO NOTIFY DR MCCALL OF PT'S REQUEST FOR ANXIETY MEDICATION
[2021-06-15 10:26] LABS: URINE AMPHETAMINE SCREEN NEGATIVE (Neg); URINE BARBITUATE SCREEN NEGATIVE (Neg); URINE BENZODIAZEPINES SCREEN NEGATIVE (Neg); URINE CANNABINOID SCREEN POSITIVE (Neg); URINE COCAINE SCREEN NEGATIVE (Neg); URINE METHADONE SCREEN NEGATIVE (Neg); URINE OPIATE SCREEN NEGATIVE (Neg); URINE PHENCYCLIDINE SCREEN NEGATIVE (Neg)
[2021-06-15 10:31] LABS: BASOPHILS # (AUTO) 0.1 X10'3 (0-0.2); BASOPHILS % (AUTO) 1.1 % (0-1); EOSINOPHILS % (AUTO) 0.4 % (0-6); HEMATOCRIT 41.8 % (42.0-52.0); HEMOGLOBIN 13.9 g/dl (14.0-17.9); LYMPHOCYTES # (AUTO) 1.2 X10'3 (1.1-4.8); LYMPHOCYTES % (AUTO) 13.3 % (21-51); MEAN CORPUSCULAR HEMOGLOBIN 33.3 PG (27.0-31.0); MEAN CORPUSCULAR HGB CONC 33.2 g/dL (33.0-36.5); MEAN CORPUSCULAR VOLUME 100.2 FL (78-98); MEAN PLATELET VOLUME 8.7 FL (7.4-10.4); MONOCYTES # (AUTO) 0.7 X10'3 (0-0.9); MONOCYTES % (AUTO) 8.4 % (2-12); NEUTROPHILS # (AUTO) 6.7 X10'3 (1.8-7.7); NEUTROPHILS % (AUTO) 76.8 % (42-75); PLATELET COUNT 209 X10'3 (140-440); RED BLOOD COUNT 4.17 X10'6 (4.70-6.10); RED CELL DISTRIBUTION WIDTH 16.6 % (11.5-14.5); WHITE BLOOD COUNT 8.8 X10'3 (4.5-11.0)
[2021-06-15] MEDS ORDERED: amiodarone 150mg/dext, iso-os 100 ML IV ONE (10:35)
[2021-06-15 10:41] LABS: ALANINE AMINOTRANSFERASE 10 U/L (12-78); ALBUMIN 2.8 G/DL (3.4-5.0); ALBUMIN/GLOBULIN RATIO 0.9 (1.1-1.5); ALKALINE PHOSPHATASE 88 IU/L (46-116); ANION GAP 7 (8-16); ASPARTATE AMINO TRANSFERASE 23 U/L (10-37); BILIRUBIN,TOTAL 1.3 MG/DL (0.1-1.0); BLOOD UREA NITROGEN 13 MG/DL (7-18); BUN/CREATININE RATIO 18.3 (5.4-32.0); CALCIUM 8.6 MG/DL (8.5-10.1); CHLORIDE 102 MMOL/L (99-107); CREATININE 0.71 MG/DL (0.60-1.10); GLUCOSE 109 MG/DL (70-104); POTASSIUM 3.8 MMOL/L (3.5-5.1); SODIUM 138 MMOL/L (135-145); TOTAL CARBON DIOXIDE 29.2 MMOL/L (24-32); TOTAL PROTEIN 5.9 G/DL (6.4-8.2); eGFR > 90 ML/MIN
[2021-06-15 10:47] LABS: ETHANOL < 0.010 GM/DL (0.0-0.010); LIPASE 65 U/L (73-393)
[2021-06-15] MEDS ORDERED: FURO40TA4 PO (12:03)
[2021-06-15] MEDS ORDERED: POTA8TAB58 PO (12:03)
[2021-06-15] MEDS ORDERED: APIX5TAB3 PO (12:03)
[2021-06-15] MEDS ORDERED: METO-384 PO (12:03)
[2021-06-15] MEDS ORDERED: LAN0.125T PO (12:03)
[2021-06-15] MEDS ORDERED: LISI2.5T89 PO (12:03)
[2021-06-15] MEDS ORDERED: morphine 2 MG/ML inj. syringe IV PRN (12:05)
[2021-06-15] MEDS ORDERED: LORazepam 2 mg/ml vial IV PRN (12:05)
[2021-06-15] MEDS ORDERED: magnesium 4gm in 100ml NS 100 ML IV PRN (12:05)
[2021-06-15] MEDS ORDERED: HYDROcodone/acetaminophen 5mg/325mg tablet PO PRN (12:05)
[2021-06-15] MEDS ORDERED: potassium Cl 20 mEq SR tablet PO PRN ×2 (12:05)
[2021-06-15] MEDS ORDERED: acetaminophen 325mg tablet PO PRN (12:05)
[2021-06-15] MEDS ORDERED: PERFLUTREN PROTEIN-A MICROSPHR (Optison) 0.22 MG/ML 3ML VIAL IV ONE (12:05)
[2021-06-15] MEDS ORDERED: magnesium Cl slow-release 64mg tablet PO PRN (12:05)
[2021-06-15] MEDS ORDERED: dextrose 50%-water 50ml dispensing syringe IV PRN (12:05)
[2021-06-15] MEDS ORDERED: ondansetron/PF 4mg/2ml inj IV PRN (12:05)
[2021-06-15] MEDS ORDERED: magnesium 2GM in 50ml NS 50 ML IV PRN (12:05)
[2021-06-15] MEDS ORDERED: LORazepam 1 MG tablet PO PRN (12:05)
[2021-06-15] MEDS ORDERED: potassium CL 10mEq/100ml bag 100 ML IV PRN (12:05)
[2021-06-15] MEDS: thiamine 100mg tablet PO SCH (12:32)
[2021-06-15] MEDS: folic acid 1mg tablet PO SCH (12:32)
[2021-06-15] MEDS ORDERED: diltiazem-NS 100mg/100ml 100 ML IV SCH (13:00)
--- NOTE | 2021-06-15 16:13 | NUR ---
HR still 145bpm,spoke to Dr. Mello,ordered amniodarone 200mg bid,first dose now.
[2021-06-15] MEDS ORDERED: amiodarone 200mg tablet PO STA (16:14)
--- NOTE | 2021-06-15 16:33 | NUR ---
pt remained asymptomatic.
--- NOTE | 2021-06-15 17:51 | NUR ---
Dr. Mello made aware that HR still 140's, Md ordered keep amniodarone po order and start pt on cardizem drip.
--- NOTE | 2021-06-15 18:00 | NUR ---
MD aware about patient's allergy.
--- NOTE | 2021-06-15 18:01 | NUR ---
Refused hospital bed when offered.
[2021-06-15] MEDS: diltiazem-NS 100mg/100ml 100 ML IV SCH (18:05)
[2021-06-15] MEDS: K and/or MAG REPLACEMENT MC SCH (20:00)
[2021-06-15] MEDS ORDERED: furosemide 40mg/4ml inj IV SCH (20:00)
[2021-06-15] MEDS: amiodarone 200mg tablet PO SCH (20:33)
[2021-06-15] MEDS: furosemide 40mg/4ml inj IV SCH (20:33)
[2021-06-15] MEDS: heparin, porcine 5000 units/ml vial SQ SCH (20:33)
[2021-06-15 21:00] VITALS: BP 128/97
[2021-06-15] MEDS ORDERED: temazepam 15mg capsule PO PRN (21:00)
[2021-06-15 22:00] VITALS: BP 126/87
[2021-06-15 23:00] VITALS: BP 120/76
[2021-06-16] VITALS (7 sets, daily range): BP systolic 115–139; BP diastolic 86–101
--- NOTE | 2021-06-16 06:07 | NUR ---
Patient in room PCU 3024. I have received report from Caroline POOLE and had the opportunity to ask questions and assume patient care.
[2021-06-16 07:02] LABS: BASOPHILS # (AUTO) 0.1 X10'3 (0-0.2); BASOPHILS % (AUTO) 0.9 % (0-1); EOSINOPHILS % (AUTO) 0.5 % (0-6); HEMOGLOBIN 14.3 g/dl (14.0-17.9); LYMPHOCYTES # (AUTO) 1.4 X10'3 (1.1-4.8); LYMPHOCYTES % (AUTO) 18.2 % (21-51); MEAN CORPUSCULAR HEMOGLOBIN 33.1 PG (27.0-31.0); MEAN CORPUSCULAR HGB CONC 33.3 g/dL (33.0-36.5); MEAN CORPUSCULAR VOLUME 99.5 FL (78-98); MEAN PLATELET VOLUME 8.6 FL (7.4-10.4); MONOCYTES # (AUTO) 0.8 X10'3 (0-0.9); MONOCYTES % (AUTO) 10.7 % (2-12); NEUTROPHILS # (AUTO) 5.3 X10'3 (1.8-7.7); NEUTROPHILS % (AUTO) 69.7 % (42-75); PLATELET COUNT 243 X10'3 (140-440); RED BLOOD COUNT 4.32 X10'6 (4.70-6.10); RED CELL DISTRIBUTION WIDTH 16.4 % (11.5-14.5); WHITE BLOOD COUNT 7.6 X10'3 (4.5-11.0)
[2021-06-16 07:31] LABS: ALANINE AMINOTRANSFERASE 12 U/L (12-78); ALBUMIN 2.8 G/DL (3.4-5.0); ALBUMIN/GLOBULIN RATIO 0.8 (1.1-1.5); ALKALINE PHOSPHATASE 79 IU/L (46-116); ANION GAP 11 (8-16); ASPARTATE AMINO TRANSFERASE 21 U/L (10-37); BILIRUBIN,TOTAL 2.6 MG/DL (0.1-1.0); BLOOD UREA NITROGEN 12 MG/DL (7-18); CALCIUM 8.8 MG/DL (8.5-10.1); CHLORIDE 103 MMOL/L (99-107); CREATININE 0.75 MG/DL (0.60-1.10); GLUCOSE 95 MG/DL (70-104); POTASSIUM 3.7 MMOL/L (3.5-5.1); SODIUM 141 MMOL/L (135-145); TOTAL CARBON DIOXIDE 27.1 MMOL/L (24-32); TOTAL PROTEIN 6.1 G/DL (6.4-8.2); eGFR > 90 ML/MIN
[2021-06-16] MEDS ORDERED: potassium chloride 8mEq ER tablet PO SCH (08:00)
[2021-06-16] MEDS: K and/or MAG REPLACEMENT MC SCH (08:00)
[2021-06-16] MEDS ORDERED: digoxin 125mcg (0.125mg) tablet PO SCH (08:00)
[2021-06-16] MEDS ORDERED: metoprolol succinate 25mg (24-HOUR) SR. Tablet PO SCH (08:00)
[2021-06-16] MEDS ORDERED: lisinopril 2.5mg tablet PO SCH (08:00)
[2021-06-16] MEDS: furosemide 40mg/4ml inj IV SCH (08:34)
[2021-06-16] MEDS: thiamine 100mg tablet PO SCH (08:35)
[2021-06-16] MEDS: heparin, porcine 5000 units/ml vial SQ SCH (08:38)
[2021-06-16] MEDS: amiodarone 200mg tablet PO SCH (08:38)
[2021-06-16] MEDS: folic acid 1mg tablet PO SCH (08:38)
[2021-06-16] MEDS: diltiazem-NS 100mg/100ml 100 ML IV SCH (08:42)
[2021-06-16] MEDS ORDERED: metoprolol succinate 25mg (24-HOUR) SR. Tablet PO ONE (09:20)
--- NOTE | 2021-06-16 13:05 | NUR ---
PAGED DR. HINTON REGARDING PATIENT WANTING TO LEAVE AMA. Message: [phone]. ROXANA LUCAS. PATIENT WANTS TO LEAVE AMA FOR APPT. WITH LIVER DR TOMORROW. THANK YOU. CALISTA POOLE X [phone]
[2021-06-16] MEDS ORDERED: ondansetron 4mg rapidly disintigrating tab PO PRN (13:30)
[2021-06-16] MEDS ORDERED: apixaban 5mg tablet PO SCH (20:00)
[2021-06-17] MEDS ORDERED: metoprolol succinate 25mg (24-HOUR) SR. Tablet PO SCH (08:00)
== END 2021-06-16 14:56 | disposition left against medical advice (07) | DRG 194 ==
LOC: ER 07:19 → ED HOLD 12:14 → PCU 3S 20:10
PROVIDERS: ADMIT Internal Medicine; ATTEND Internal Medicine
DX: I50.23 Acute on chronic systolic (congestive) heart failure (principal); K70.31 Alcoholic cirrhosis of liver with ascites; F17.210 Nicotine dependence, cigarettes, uncomplicated; I48.20 Chronic atrial fibrillation, unspecified; J44.9 Chronic obstructive pulmonary disease, unspecified; Z20.822 Contact with and (suspected) exposure to COVID-19; Z53.29 Procedure and treatment not carried out because of patient's decision for other reasons; Z66 Do not resuscitate; F12.90 Cannabis use, unspecified, uncomplicated; E78.00 Pure hypercholesterolemia, unspecified; Z83.3 Family history of diabetes mellitus; Z82.49 Family history of ischemic heart disease and other diseases of the circulatory system; Z91.14 Patient's other noncompliance with medication regimen; Z80.8 Family history of malignant neoplasm of other organs or systems; Z88.8 Allergy status to other drugs, medicaments and biological substances; Z79.899 Other long term (current) drug therapy
CPT/HCPCS: 36415; 71045; 80053; 80162; 80305; 80320; 83690; 83880; 84484; 85025; 85610; 87081; 87635; 93005; 93306; 99285; G0378; J0282; J1644; J1940; J2060; J2270; J3490

== ENCOUNTER 2021-06-28 08:25 | Emergency (ER) | payer MEDICAID ==
[~2021-06-28] VITALS: Ht 177.8 cm; Wt 93.2 kg
[~2021-06-28 08:25] MED LIST changes: -DIGO-20 PO; -FURO-149 PO; +FURO40TA4 PO; +LAN0.125T PO; -LISI2.5T14 PO; +LISI2.5T89 PO; +METO-384 PO; -METO-395 PO; +MULT-1085 PO; -POTA-207 PO; +POTA8TAB58 PO
[2021-06-28] MEDS ORDERED: ondansetron/PF 4mg/2ml inj IV ONE (08:45)
[2021-06-28] MEDS: metoprolol tartrate 1mg/ml inj IV SCH ×3 (08:52→09:42)
[2021-06-28 08:57] LABS: BASOPHILS % (AUTO) 0.7 % (0-1); EOSINOPHILS % (AUTO) 0.2 % (0-6); HEMATOCRIT 41.5 % (42.0-52.0); LYMPHOCYTES # (AUTO) 0.7 X10'3 (1.1-4.8); LYMPHOCYTES % (AUTO) 9.4 % (21-51); MEAN CORPUSCULAR HEMOGLOBIN 33.1 PG (27.0-31.0); MEAN CORPUSCULAR HGB CONC 33.8 g/dL (33.0-36.5); MEAN CORPUSCULAR VOLUME 98.1 FL (78-98); MEAN PLATELET VOLUME 8.8 FL (7.4-10.4); MONOCYTES # (AUTO) 0.8 X10'3 (0-0.9); MONOCYTES % (AUTO) 10.2 % (2-12); NEUTROPHILS % (AUTO) 79.5 % (42-75); PLATELET COUNT 149 X10'3 (140-440); RED BLOOD COUNT 4.22 X10'6 (4.70-6.10); RED CELL DISTRIBUTION WIDTH 16.5 % (11.5-14.5); WHITE BLOOD COUNT 7.5 X10'3 (4.5-11.0)
[2021-06-28 09:10] LABS: ALANINE AMINOTRANSFERASE 81 U/L (12-78); ALBUMIN 2.9 G/DL (3.4-5.0); ALBUMIN/GLOBULIN RATIO 0.9 (1.1-1.5); ALKALINE PHOSPHATASE 94 IU/L (46-116); ANION GAP 5 (8-16); ASPARTATE AMINO TRANSFERASE 98 U/L (10-37); BLOOD UREA NITROGEN 25 MG/DL (7-18); BUN/CREATININE RATIO 25.5 (5.4-32.0); CALCIUM 8.3 MG/DL (8.5-10.1); CHLORIDE 98 MMOL/L (99-107); CREATININE 0.98 MG/DL (0.60-1.10); GLUCOSE 101 MG/DL (70-104); LIPASE 149 U/L (73-393); POTASSIUM 3.4 MMOL/L (3.5-5.1); SODIUM 134 MMOL/L (135-145); TOTAL CARBON DIOXIDE 31.1 MMOL/L (24-32); TOTAL PROTEIN 6.1 G/DL (6.4-8.2); eGFR 83 ML/MIN
[2021-06-28 09:52] LABS: APTT 31 SECONDS (22-32)
[2021-06-28] MEDS ORDERED: metoprolol tartrate 1mg/ml inj IV SCH (10:30)
--- NOTE | 2021-06-28 12:30 | NUR ---
DR CAMERON MADE AWARE TOTAL OF 8150 ML OF PERITONEAL FLUID REMOVED, PATIENT STATES GREAT RELIEF AND READY TO GO HOME. MD ASSESSED PATIENT AT BEDSIDE AND PROVIDED DC INSTRUCTIONS, PAT VERBALIZED UNDERSTANDING.
[2021-06-28 12:48] VITALS: BP 106/81
== END 2021-06-28 12:50 | disposition home or self-care (01) ==
LOC: ER 08:26
DX: K72.90 Hepatic failure, unspecified without coma (principal); Z20.822 Contact with and (suspected) exposure to COVID-19; R18.8 Other ascites; I87.1 Compression of vein; R43.8 Other disturbances of smell and taste; I48.91 Unspecified atrial fibrillation; I49.9 Cardiac arrhythmia, unspecified; R11.2 Nausea with vomiting, unspecified; I50.9 Heart failure, unspecified; E78.00 Pure hypercholesterolemia, unspecified; J44.9 Chronic obstructive pulmonary disease, unspecified; Z98.890 Other specified postprocedural states; Z72.89 Other problems related to lifestyle; Z88.8 Allergy status to other drugs, medicaments and biological substances; Z79.899 Other long term (current) drug therapy
CPT/HCPCS: 36415; 49083; 71045; 76705; 80053; 83690; 85025; 85610; 85730; 87635; 93005; 96374; 96375; 96376; 99291; C9803; J2405; J3490

== ENCOUNTER 2021-07-17 20:23 | Inpatient (IN) | payer MEDICAID ==
[~2021-07-17] VITALS: Ht 177.8 cm; Wt 83.8 kg
[2021-07-17] MEDS ORDERED: pantoprazole 40MG/D5 100ML BAG 100 ML IV STA (22:47)
[2021-07-17] MEDS ORDERED: CefTRIAXone/D5W-Rocephin 1gm 50 ML IV ONE (22:55)
[2021-07-17] MEDS ORDERED: pantoprazole 40MG/NS 100ML BAG 100 ML IV ONE (22:55)
[2021-07-17] MEDS ORDERED: octreotide inj. 1,250 MCG in normal saline 250ml IV soln 243.75 ML IV SCH (22:55)
[2021-07-17 23:19] LABS: BASOPHILS # (AUTO) 0.1 X10'3 (0-0.2); BASOPHILS % (AUTO) 0.7 % (0-1); EOSINOPHILS % (AUTO) 0.2 % (0-6); HEMATOCRIT 46.2 % (42.0-52.0); HEMOGLOBIN 15.4 g/dl (14.0-17.9); LYMPHOCYTES # (AUTO) 0.9 X10'3 (1.1-4.8); LYMPHOCYTES % (AUTO) 11.5 % (21-51); MEAN CORPUSCULAR HEMOGLOBIN 32.9 PG (27.0-31.0); MEAN CORPUSCULAR HGB CONC 33.3 g/dL (33.0-36.5); MEAN CORPUSCULAR VOLUME 98.7 FL (78-98); MEAN PLATELET VOLUME 9.8 FL (7.4-10.4); MONOCYTES # (AUTO) 0.4 X10'3 (0-0.9); MONOCYTES % (AUTO) 5.8 % (2-12); NEUTROPHILS # (AUTO) 6.1 X10'3 (1.8-7.7); NEUTROPHILS % (AUTO) 81.8 % (42-75); PLATELET COUNT 104 X10'3 (140-440); RED BLOOD COUNT 4.68 X10'6 (4.70-6.10); RED CELL DISTRIBUTION WIDTH 18.1 % (11.5-14.5); WHITE BLOOD COUNT 7.5 X10'3 (4.5-11.0)
[2021-07-17 23:32] LABS: APTT 28 SECONDS (22-32)
[2021-07-17] MEDS ORDERED: metoclopramide 5 mg/ml inj IV ONE (23:45)
[2021-07-17 23:46] LABS: ALANINE AMINOTRANSFERASE 29 U/L (12-78); ALBUMIN 2.7 G/DL (3.4-5.0); ALBUMIN/GLOBULIN RATIO 0.9 (1.1-1.5); ALKALINE PHOSPHATASE 96 IU/L (46-116); ANION GAP 13 (8-16); ASPARTATE AMINO TRANSFERASE 62 U/L (10-37); BILIRUBIN,TOTAL 2.9 MG/DL (0.1-1.0); BLOOD UREA NITROGEN 31 MG/DL (7-18); BUN/CREATININE RATIO 29.2 (5.4-32.0); CALCIUM 8.4 MG/DL (8.5-10.1); CHLORIDE 89 MMOL/L (99-107); CREATININE 1.06 MG/DL (0.60-1.10); GLUCOSE 89 MG/DL (70-104); MAGNESIUM 1.9 MG/DL (1.5-2.4); POTASSIUM 3.9 MMOL/L (3.5-5.1); SODIUM 127 MMOL/L (135-145); TOTAL CARBON DIOXIDE 24.8 MMOL/L (24-32); TOTAL PROTEIN 5.8 G/DL (6.4-8.2); eGFR 76 ML/MIN
[2021-07-18] MEDS ORDERED: vancomycin/NS 1 GM ADD-VANTAGE 250 ML IV ONE (01:55)
[2021-07-18] MEDS ORDERED: magnesium Cl slow-release 64mg tablet PO PRN (02:45)
[2021-07-18] MEDS ORDERED: magnesium 2GM in 50ml NS 50 ML IV PRN (02:45)
[2021-07-18] MEDS ORDERED: potassium Cl 20 mEq SR tablet PO PRN ×2 (02:45)
[2021-07-18] MEDS ORDERED: ondansetron/PF 4mg/2ml inj IV PRN (02:45)
[2021-07-18] MEDS ORDERED: potassium CL 10mEq/100ml bag 100 ML IV PRN (02:45)
[2021-07-18] MEDS ORDERED: mag hydrox/Alum hydrox/simeth 30ml oral suspension PO PRN (02:45)
[2021-07-18] MEDS ORDERED: magnesium hydroxide 30ml (MOM) UD suspension PO PRN (02:45)
[2021-07-18] MEDS ORDERED: magnesium 4gm in 100ml NS 100 ML IV PRN (02:45)
[2021-07-18] MEDS ORDERED: ESCI5TAB17 PO (03:25)
[2021-07-18] MEDS ORDERED: SPIR25TA5 PO (03:25)
[2021-07-18] MEDS ORDERED: LORazepam 1 MG tablet PO PRN (03:50)
[2021-07-18] MEDS: LORazepam 1 MG tablet PO PRN (04:02)
--- NOTE | 2021-07-18 04:34 | NUR ---
Assisted Dr. Eaton with paracentisis
--- NOTE | 2021-07-18 06:12 | NUR ---
Escobar guzman in [facility] - 07/18/21 at 0613 by JULIA [id number] out from Paracentesis
--- NOTE | 2021-07-18 06:13 | NUR ---
2950 mL out from paracentesis
--- NOTE | 2021-07-18 07:10 | NUR ---
PT FINISHED PARACENTESIS AND DRAINED ANOTHER 1100ML. REPORTED TO MD THAPA PT BP 87/69 (MAP 73)HR 65. NO NEW ORDERS.
[2021-07-18] MEDS: pantoprazole 40MG/NS 100ML BAG 100 ML IV SCH ×2 (08:00→20:30)
[2021-07-18] MEDS: docusate sod 100mg capsule PO SCH ×2 (08:00→20:31)
[2021-07-18] MEDS: K and/or MAG REPLACEMENT MC SCH ×2 (08:00→20:00)
--- NOTE | 2021-07-18 08:25 | NUR ---
PT HR NOW 140S-150S AFIB. HOSPITALIST CANDIDO BOLDEN MD CONSULTED AND HUNG BAG OF NS WHILE AWAITING HOSPITALIST PHONE CALL.
[2021-07-18 08:39] LABS: LDH,BODY FLUID 91 U/L
--- NOTE | 2021-07-18 08:45 | NUR ---
SPOKE WITH DR. GONZALEZ, RECEIVED VO TO GIVE PT 25GMS OF ALBUMIN STAT, AND NS IV FLUID BOLUS OF 500ML.
[2021-07-18] MEDS ORDERED: albumin (human) 25% 100 ML IV solution IV ONE ×2 (08:50→11:55)
[2021-07-18 08:54] LABS: TOTAL PROTEIN,BODY FLUID < 2.0 G/DL
[2021-07-18 09:16] LABS: LYMPHOCYTES,BODY FLUID 38 %; MONOCYTES,BODY FLUID 34 %; NEUTROPHILS,BODY FLUID 28 %
[2021-07-18 09:18] LABS: BFAPPEAR HAZY
--- NOTE | 2021-07-18 09:18 | NUR ---
500ML BOLUS OF NS COMPLETED AND ALBUMIN NOW INFUSING.
[2021-07-18 09:19] LABS: BF RBC COUNT 260 /CU MM; BF WBC COUNT 69 /CU MM (0-1000); BFCOLOR YELLOW; BFVOLUME 6.5 ML
--- NOTE | 2021-07-18 09:30 | NUR ---
Hospitalist paged, orders completed and HR remains a-fib 140s
--- NOTE | 2021-07-18 09:45 | NUR ---
Spoke with hospitalist and updated pt HR still 140s a-fib and albumin and fluid bolus completed, MD to come and see pt soon, no new orders
[2021-07-18] MEDS ORDERED: digoxin 250mcg/ml 2ml ampule IV STA (10:30)
[2021-07-18] MEDS ORDERED: normal saline 500ml IV soln 1,000 ML IV ONE (11:55)
--- NOTE | 2021-07-18 11:55 | NUR ---
REPORTED PT HR 140S A-FIB TO DR. GONZALEZ, RECEIVED TVO: ADMINITSTER ALBUMIN 25% IV NOW 500ML NS IV BOLUS METOPROLOL 5MG IV X 1
[2021-07-18] MEDS ORDERED: pantoprazole 40MG/NS 100ML BAG 100 ML IV ONE (12:00)
[2021-07-18] MEDS ORDERED: metoprolol tartrate 1mg/ml inj IV ONE ×2 (12:05→17:20)
--- NOTE | 2021-07-18 14:05 | NUR ---
MD Brown rosa, pt HR ranging 120s-136s.
[2021-07-18] MEDS: lisinopril 2.5mg tablet PO SCH (17:10)
--- NOTE | 2021-07-18 17:10 | NUR ---
Dr. Dasilva updated pt HR remains 120s-130s, pt with masserated tissue behind bilat knees that are reddened and yellow crust. Reported pt has not had any urine output during shift. Pt to get have LR bolus of 250mls, IV Metoprolol 5mg x 1 now, Nystatin cream to behind knees TID topically and to monitor UO and place FC if pt agreeable. Pt to have amonia level drawn as well.
[2021-07-18] MEDS ORDERED: ringers solution, lacted 1,000 ML IV ONE (17:20)
[2021-07-18 18:26] LABS: CLARITY,URINE CLEAR (Clear); COLOR,URINE YELLOW (Yellow); GLUCOSE, URINE NEGATIVE (Neg); KETONES,URINE NEGATIVE (Neg); LEUKOCYTE ESTERASE ,URINE NEGATIVE (Neg); NITRITES, URINE NEGATIVE (Neg); OCCULT BLOOD,URINE NEGATIVE (Neg); PH,URINE 5.5 (4.8-8.0); PROTEIN,URINE TRACE mg/dl (Neg)
[2021-07-18 18:31] LABS: UA COLLECTION TYPE URINAL
[2021-07-18 18:32] LABS: BACTERIA,URINE NONE SEEN /HPF (Neg); RBC,URINE NONE SEEN /HPF (0-2); SQUAMOUS EPITHELIAL CELL,UR FEW /LPF (FEW); WBC,URINE 0-4 /HPF (0-4)
[2021-07-18] MEDS: LORazepam 2 mg/ml vial IV PRN (19:22)
[2021-07-18] MEDS ORDERED: metoprolol tartrate 50mg tablet PO ONE (20:00)
[2021-07-18] MEDS: apixaban 5mg tablet PO SCH (20:00)
--- NOTE | 2021-07-18 20:38 | NUR ---
Per Dr. Dasilva hold Eda brown and ok to order CBC,CMP and Lactic. She says this patient need to be on hospice and they will be addressing this with him tomorrow.
[2021-07-18] MEDS: NYSTATIN CREAM - 30GM TUBE TP SCH (20:56)
[2021-07-18 21:05] LABS: BASOPHILS # (AUTO) 0.1 X10'3 (0-0.2); BASOPHILS % (AUTO) 0.9 % (0-1); EOSINOPHILS % (AUTO) 0.3 % (0-6); HEMATOCRIT 40.2 % (42.0-52.0); HEMOGLOBIN 13.3 g/dl (14.0-17.9); LYMPHOCYTES # (AUTO) 0.8 X10'3 (1.1-4.8); LYMPHOCYTES % (AUTO) 12.4 % (21-51); MEAN CORPUSCULAR HEMOGLOBIN 32.7 PG (27.0-31.0); MEAN CORPUSCULAR HGB CONC 33.2 g/dL (33.0-36.5); MEAN CORPUSCULAR VOLUME 98.4 FL (78-98); MEAN PLATELET VOLUME 10.2 FL (7.4-10.4); MONOCYTES # (AUTO) 0.6 X10'3 (0-0.9); NEUTROPHILS # (AUTO) 4.7 X10'3 (1.8-7.7); NEUTROPHILS % (AUTO) 77.4 % (42-75); PLATELET COUNT 94 X10'3 (140-440); RED BLOOD COUNT 4.08 X10'6 (4.70-6.10); RED CELL DISTRIBUTION WIDTH 18.2 % (11.5-14.5); WHITE BLOOD COUNT 6.1 X10'3 (4.5-11.0)
[2021-07-18 21:42] LABS: ANION GAP 10 (8-16); BLOOD UREA NITROGEN 25 MG/DL (7-18); CALCIUM 7.9 MG/DL (8.5-10.1); CHLORIDE 91 MMOL/L (99-107); CREATININE 0.96 MG/DL (0.60-1.10); GLUCOSE 97 MG/DL (70-104); POTASSIUM 4.1 MMOL/L (3.5-5.1); SODIUM 126 MMOL/L (135-145); TOTAL CARBON DIOXIDE 25.3 MMOL/L (24-32); eGFR 85 ML/MIN
[2021-07-18 21:43] LABS: ALANINE AMINOTRANSFERASE 22 U/L (12-78); ALBUMIN 2.6 G/DL (3.4-5.0); ALBUMIN/GLOBULIN RATIO 1.1 (1.1-1.5); ALKALINE PHOSPHATASE 69 IU/L (46-116); ASPARTATE AMINO TRANSFERASE 46 U/L (10-37); BILIRUBIN,TOTAL 2.8 MG/DL (0.1-1.0); TOTAL PROTEIN 4.9 G/DL (6.4-8.2)
--- NOTE | 2021-07-18 22:36 | NUR ---
Patient admitted to room 3028A. Alert and oriented X4, lethargic but able to answer questions. No complaints of pain just states he is cold. Telemetry connected HR currently 115. No distress noted. Sandostatin continued. Vitals and skin assessment conducted. Will continue to monitor.
[2021-07-18 22:51] VITALS: BP 85/52
[2021-07-19 01:56] VITALS: BP 109/60
--- NOTE | 2021-07-19 01:56 | NUR ---
BP 109/60 AFTER 500cc bolus. Will continue to monitor.
[2021-07-19 02:00] VITALS: BP 100/46
[2021-07-19] MEDS: LORazepam 2 mg/ml vial IV PRN ×3 (02:29→22:08)
[2021-07-19 06:00] VITALS: BP 130/72
[2021-07-19 06:16] LABS: BASOPHILS % (AUTO) 0.5 % (0-1); EOSINOPHILS % (AUTO) 0.3 % (0-6); HEMATOCRIT 41.2 % (42.0-52.0); HEMOGLOBIN 13.7 g/dl (14.0-17.9); LYMPHOCYTES # (AUTO) 0.8 X10'3 (1.1-4.8); LYMPHOCYTES % (AUTO) 12.5 % (21-51); MEAN CORPUSCULAR HGB CONC 33.1 g/dL (33.0-36.5); MEAN CORPUSCULAR VOLUME 99.5 FL (78-98); MEAN PLATELET VOLUME 9.7 FL (7.4-10.4); MONOCYTES # (AUTO) 0.6 X10'3 (0-0.9); MONOCYTES % (AUTO) 9.3 % (2-12); NEUTROPHILS % (AUTO) 77.4 % (42-75); PLATELET COUNT 91 X10'3 (140-440); RED BLOOD COUNT 4.14 X10'6 (4.70-6.10); RED CELL DISTRIBUTION WIDTH 17.9 % (11.5-14.5); WHITE BLOOD COUNT 6.5 X10'3 (4.5-11.0)
[2021-07-19 06:19] LABS: APTT 31 SECONDS (22-32)
[2021-07-19 06:42] LABS: ALANINE AMINOTRANSFERASE 25 U/L (12-78); ALBUMIN 2.5 G/DL (3.4-5.0); ALBUMIN/GLOBULIN RATIO 1.2 (1.1-1.5); ANION GAP 7 (8-16); ASPARTATE AMINO TRANSFERASE 42 U/L (10-37); BILIRUBIN,TOTAL 2.8 MG/DL (0.1-1.0); BLOOD UREA NITROGEN 23 MG/DL (7-18); BUN/CREATININE RATIO 27.4 (5.4-32.0); CALCIUM 7.5 MG/DL (8.5-10.1); CHLORIDE 92 MMOL/L (99-107); CREATININE 0.84 MG/DL (0.60-1.10); GLUCOSE 85 MG/DL (70-104); SODIUM 128 MMOL/L (135-145); TOTAL CARBON DIOXIDE 28.7 MMOL/L (24-32); TOTAL PROTEIN 4.6 G/DL (6.4-8.2); eGFR > 90 ML/MIN
[2021-07-19 06:55] LABS: ALKALINE PHOSPHATASE 67 IU/L (46-116)
[2021-07-19] MEDS: K and/or MAG REPLACEMENT MC SCH ×2 (08:00→20:00)
[2021-07-19] MEDS: NYSTATIN CREAM - 30GM TUBE TP SCH ×2 (08:00→20:00)
[2021-07-19] MEDS: docusate sod 100mg capsule PO SCH ×2 (08:00→20:00)
[2021-07-19] MEDS: multivitamins, therapeutics tablet PO SCH (09:21)
[2021-07-19] MEDS: acetaminophen 325mg tablet PO PRN (09:22)
[2021-07-19] MEDS: lisinopril 2.5mg tablet PO SCH (09:23)
[2021-07-19] MEDS: ESCITALOPRAM OXALATE 5 MG TABLET PO SCH (09:23)
[2021-07-19] MEDS: digoxin 125mcg (0.125mg) tablet PO SCH (09:23)
[2021-07-19] MEDS: apixaban 5mg tablet PO SCH ×2 (09:23→20:00)
[2021-07-19] MEDS: pantoprazole 40MG/NS 100ML BAG 100 ML IV SCH ×2 (09:24→20:00)
[2021-07-19] MEDS: metoprolol tartrate 25mg tablet PO SCH ×2 (09:45→20:00)
[2021-07-19 15:00] VITALS: BP 124/71
[2021-07-19 18:00] VITALS: BP 91/64
[2021-07-19] MEDS ORDERED: metoprolol tartrate 25mg tablet PO SCH (20:00)
[2021-07-19] MEDS: furosemide 40mg/4ml inj IV SCH (20:00)
[2021-07-19 22:00] VITALS: BP 115/71
[2021-07-20 02:00] VITALS: BP 152/97
[2021-07-20 06:00] VITALS: BP 99/60
[2021-07-20 06:08] LABS: BASOPHILS % (AUTO) 0.5 % (0-1); EOSINOPHILS % (AUTO) 0.5 % (0-6); HEMATOCRIT 40.7 % (42.0-52.0); HEMOGLOBIN 13.2 g/dl (14.0-17.9); LYMPHOCYTES # (AUTO) 0.7 X10'3 (1.1-4.8); LYMPHOCYTES % (AUTO) 9.8 % (21-51); MEAN CORPUSCULAR HEMOGLOBIN 32.3 PG (27.0-31.0); MEAN CORPUSCULAR HGB CONC 32.6 g/dL (33.0-36.5); MEAN PLATELET VOLUME 9.4 FL (7.4-10.4); MONOCYTES # (AUTO) 0.6 X10'3 (0-0.9); MONOCYTES % (AUTO) 8.6 % (2-12); NEUTROPHILS % (AUTO) 80.6 % (42-75); PLATELET COUNT 86 X10'3 (140-440); RED BLOOD COUNT 4.11 X10'6 (4.70-6.10); RED CELL DISTRIBUTION WIDTH 17.8 % (11.5-14.5); WHITE BLOOD COUNT 7.4 X10'3 (4.5-11.0)
[2021-07-20 06:18] LABS: APTT 33 SECONDS (22-32)
[2021-07-20 06:21] LABS: ALANINE AMINOTRANSFERASE 26 U/L (12-78); ALBUMIN 2.2 G/DL (3.4-5.0); ANION GAP 6 (8-16); ASPARTATE AMINO TRANSFERASE 44 U/L (10-37); BILIRUBIN,TOTAL 2.9 MG/DL (0.1-1.0); BLOOD UREA NITROGEN 19 MG/DL (7-18); BUN/CREATININE RATIO 21.8 (5.4-32.0); CALCIUM 7.3 MG/DL (8.5-10.1); CHLORIDE 96 MMOL/L (99-107); CREATININE 0.87 MG/DL (0.60-1.10); GLUCOSE 109 MG/DL (70-104); POTASSIUM 3.6 MMOL/L (3.5-5.1); SODIUM 132 MMOL/L (135-145); TOTAL PROTEIN 4.4 G/DL (6.4-8.2); eGFR > 90 ML/MIN
[2021-07-20] MEDS: pantoprazole 40MG/NS 100ML BAG 100 ML IV SCH ×2 (08:00→20:52)
[2021-07-20] MEDS: K and/or MAG REPLACEMENT MC SCH ×2 (08:00→20:00)
[2021-07-20] MEDS: ESCITALOPRAM OXALATE 5 MG TABLET PO SCH (08:48)
[2021-07-20] MEDS: furosemide 40mg/4ml inj IV SCH ×2 (08:48→20:53)
[2021-07-20] MEDS: docusate sod 100mg capsule PO SCH ×2 (08:48→20:00)
[2021-07-20] MEDS: digoxin 125mcg (0.125mg) tablet PO SCH (08:49)
[2021-07-20] MEDS: multivitamins, therapeutics tablet PO SCH (08:49)
[2021-07-20] MEDS: apixaban 5mg tablet PO SCH ×2 (08:49→20:52)
[2021-07-20] MEDS: lisinopril 2.5mg tablet PO SCH (08:49)
[2021-07-20] MEDS: metoprolol tartrate 25mg tablet PO SCH ×2 (08:50→20:52)
[2021-07-20] MEDS: spironolactone 25 MG tablet PO SCH (08:51)
[2021-07-20] MEDS: NYSTATIN CREAM - 30GM TUBE TP SCH ×2 (08:51→20:52)
[2021-07-20] MEDS: acetaminophen 325mg tablet PO PRN (08:53)
[2021-07-20 11:00] VITALS: BP 99/74
[2021-07-20 15:00] VITALS: BP 117/83
[2021-07-20] MEDS: LORazepam 2 mg/ml vial IV PRN ×3 (16:13→22:55)
[2021-07-20 18:00] VITALS: BP 90/50
[2021-07-20 22:00] VITALS: BP 104/73
--- NOTE | 2021-07-21 00:12 | NUR ---
Patient stating he wants to leave hospital. Patient is confused, this nurse attempting to re-orient. Patient found in bathroom without assistance. New alarm placed for safety. Family called by patient, nurse gave updates. Will continue to monitor.
--- NOTE | 2021-07-21 01:50 | NUR ---
multiple attempts in trying to get out of bed without assistance. pt confused asking for a dog or saying things like he's just a baby. Alarm on. Bed lowest position. will continue to monitor.
[2021-07-21 02:00] VITALS: BP 101/57
[2021-07-21] MEDS: LORazepam 1 MG tablet PO PRN (02:32)
[2021-07-21 06:00] VITALS: BP 117/57
[2021-07-21 06:37] LABS: BASOPHILS % (AUTO) 0.6 % (0-1); EOSINOPHILS # (AUTO) 0.1 X10'3 (0-0.9); EOSINOPHILS % (AUTO) 0.8 % (0-6); HEMATOCRIT 43.1 % (42.0-52.0); HEMOGLOBIN 14.3 g/dl (14.0-17.9); LYMPHOCYTES # (AUTO) 0.7 X10'3 (1.1-4.8); LYMPHOCYTES % (AUTO) 10.3 % (21-51); MEAN CORPUSCULAR HGB CONC 33.1 g/dL (33.0-36.5); MEAN CORPUSCULAR VOLUME 99.8 FL (78-98); MEAN PLATELET VOLUME 10.2 FL (7.4-10.4); MONOCYTES # (AUTO) 0.6 X10'3 (0-0.9); MONOCYTES % (AUTO) 9.7 % (2-12); NEUTROPHILS # (AUTO) 5.1 X10'3 (1.8-7.7); NEUTROPHILS % (AUTO) 78.6 % (42-75); PLATELET COUNT 97 X10'3 (140-440); RED BLOOD COUNT 4.32 X10'6 (4.70-6.10); RED CELL DISTRIBUTION WIDTH 17.7 % (11.5-14.5); WHITE BLOOD COUNT 6.4 X10'3 (4.5-11.0)
--- NOTE | 2021-07-21 07:00 | NUR ---
PATIENT at bedside Attempt to leave putting on clothes pt confused asking to go home and he going to leave mother was called and is aware [phone] . Alarm on. Bed lowest position. will continue to monitor.
[2021-07-21 07:37] LABS: ALANINE AMINOTRANSFERASE 27 U/L (12-78); ALBUMIN 2.1 G/DL (3.4-5.0); ANION GAP 5 (8-16); ASPARTATE AMINO TRANSFERASE 43 U/L (10-37); BILIRUBIN,TOTAL 2.2 MG/DL (0.1-1.0); BLOOD UREA NITROGEN 15 MG/DL (7-18); BUN/CREATININE RATIO 16.9 (5.4-32.0); CHLORIDE 97 MMOL/L (99-107); CREATININE 0.89 MG/DL (0.60-1.10); GLUCOSE 95 MG/DL (70-104); SODIUM 137 MMOL/L (135-145); TOTAL PROTEIN 4.3 G/DL (6.4-8.2); eGFR > 90 ML/MIN
--- NOTE | 2021-07-21 07:58 | NUR ---
PAGER ID: [phone] MESSAGE: patient 3028a potassium 3.0 no protocol ordered and also he trying to leave and he is more confused this morning . YOMAIRA POOLE
[2021-07-21] MEDS: NYSTATIN CREAM - 30GM TUBE TP SCH ×2 (08:00→20:41)
[2021-07-21] MEDS: ESCITALOPRAM OXALATE 5 MG TABLET PO SCH (08:15)
[2021-07-21] MEDS: digoxin 125mcg (0.125mg) tablet PO SCH (08:15)
[2021-07-21] MEDS: lisinopril 2.5mg tablet PO SCH (08:15)
[2021-07-21] MEDS: metoprolol tartrate 25mg tablet PO SCH ×2 (08:16→20:41)
[2021-07-21] MEDS: spironolactone 25 MG tablet PO SCH (08:16)
[2021-07-21] MEDS: acetaminophen 325mg tablet PO PRN ×2 (08:16→08:19)
[2021-07-21] MEDS: multivitamins, therapeutics tablet PO SCH (08:18)
[2021-07-21] MEDS: pantoprazole 40MG/NS 100ML BAG 100 ML IV SCH ×2 (08:18→20:00)
[2021-07-21] MEDS: furosemide 40mg/4ml inj IV SCH ×2 (08:18→20:40)
[2021-07-21] MEDS: apixaban 5mg tablet PO SCH ×2 (08:18→20:40)
[2021-07-21] MEDS: docusate sod 100mg capsule PO SCH ×2 (08:19→19:53)
[2021-07-21] MEDS ORDERED: potassium Cl 20 mEq SR tablet PO PRN (08:45)
[2021-07-21] MEDS ORDERED: magnesium 2GM in 50ml NS 50 ML IV PRN (08:45)
[2021-07-21] MEDS ORDERED: magnesium 4gm in 100ml NS 100 ML IV PRN (08:45)
[2021-07-21 09:29] LABS: MAGNESIUM 1.4 MG/DL (1.5-2.4)
[2021-07-21 11:00] VITALS: BP 96/53
[2021-07-21] MEDS: potassium CL 10mEq/100ml bag 100 ML IV PRN ×2 (12:04→20:42)
[2021-07-21 18:00] VITALS: BP 90/61
[2021-07-21] MEDS: K and/or MAG REPLACEMENT MC SCH ×2 (19:50→20:40)
[2021-07-21] MEDS ORDERED: K and/or MAG REPLACEMENT MC SCH (20:00)
[2021-07-21 22:00] VITALS: BP 96/64
[2021-07-22] MEDS: LORazepam 2 mg/ml vial IV PRN (00:06)
[2021-07-22] MEDS: potassium CL 10mEq/100ml bag 100 ML IV PRN (00:26)
[2021-07-22 06:00] VITALS: BP 84/51
[2021-07-22 06:16] LABS: BASOPHILS % (AUTO) 0.7 % (0-1); EOSINOPHILS # (AUTO) 0.1 X10'3 (0-0.9); EOSINOPHILS % (AUTO) 0.8 % (0-6); HEMATOCRIT 43.5 % (42.0-52.0); HEMOGLOBIN 14.4 g/dl (14.0-17.9); LYMPHOCYTES # (AUTO) 0.9 X10'3 (1.1-4.8); LYMPHOCYTES % (AUTO) 13.8 % (21-51); MEAN CORPUSCULAR HEMOGLOBIN 33.2 PG (27.0-31.0); MEAN CORPUSCULAR HGB CONC 33.1 g/dL (33.0-36.5); MEAN CORPUSCULAR VOLUME 100.2 FL (78-98); MEAN PLATELET VOLUME 8.7 FL (7.4-10.4); MONOCYTES # (AUTO) 0.6 X10'3 (0-0.9); MONOCYTES % (AUTO) 9.4 % (2-12); NEUTROPHILS # (AUTO) 4.8 X10'3 (1.8-7.7); NEUTROPHILS % (AUTO) 75.3 % (42-75); PLATELET COUNT 109 X10'3 (140-440); RED BLOOD COUNT 4.34 X10'6 (4.70-6.10); RED CELL DISTRIBUTION WIDTH 18.1 % (11.5-14.5); WHITE BLOOD COUNT 6.3 X10'3 (4.5-11.0)
[2021-07-22 06:38] LABS: ALANINE AMINOTRANSFERASE 25 U/L (12-78); ALBUMIN/GLOBULIN RATIO 0.9 (1.1-1.5); ANION GAP 3 (8-16); ASPARTATE AMINO TRANSFERASE 33 U/L (10-37); BILIRUBIN,TOTAL 1.9 MG/DL (0.1-1.0); BLOOD UREA NITROGEN 13 MG/DL (7-18); BUN/CREATININE RATIO 14.8 (5.4-32.0); CALCIUM 6.7 MG/DL (8.5-10.1); CHLORIDE 99 MMOL/L (99-107); CREATININE 0.88 MG/DL (0.60-1.10); GLUCOSE 90 MG/DL (70-104); MAGNESIUM 1.2 MG/DL (1.5-2.4); POTASSIUM 3.2 MMOL/L (3.5-5.1); SODIUM 137 MMOL/L (135-145); TOTAL CARBON DIOXIDE 34.8 MMOL/L (24-32); TOTAL PROTEIN 4.2 G/DL (6.4-8.2); eGFR > 90 ML/MIN
[2021-07-22 07:03] LABS: ALKALINE PHOSPHATASE 60 IU/L (46-116)
[2021-07-22] MEDS ORDERED: folic acid 1mg tablet PO SCH (08:00)
[2021-07-22] MEDS: furosemide 40mg/4ml inj IV SCH (08:00)
[2021-07-22] MEDS: lisinopril 2.5mg tablet PO SCH (08:00)
[2021-07-22] MEDS ORDERED: thiamine 100mg tablet PO SCH (08:00)
[2021-07-22] MEDS: metoprolol tartrate 25mg tablet PO SCH (08:00)
[2021-07-22] MEDS: NYSTATIN CREAM - 30GM TUBE TP SCH (08:00)
[2021-07-22] MEDS: docusate sod 100mg capsule PO SCH (08:00)
[2021-07-22] MEDS: spironolactone 25 MG tablet PO SCH (08:30)
[2021-07-22] MEDS: digoxin 125mcg (0.125mg) tablet PO SCH (09:25)
[2021-07-22] MEDS: ESCITALOPRAM OXALATE 5 MG TABLET PO SCH (09:25)
[2021-07-22] MEDS: apixaban 5mg tablet PO SCH (09:26)
[2021-07-22] MEDS: multivitamins, therapeutics tablet PO SCH (09:26)
[2021-07-22] MEDS: pantoprazole 40MG/NS 100ML BAG 100 ML IV SCH (09:33)
[2021-07-22] MEDS: potassium Cl 20 mEq SR tablet PO PRN ×2 (10:08→14:57)
[2021-07-22 11:00] VITALS: BP 93/61
[2021-07-22] MEDS: magnesium Cl slow-release 64mg tablet PO PRN ×2 (13:04→16:31)
[2021-07-22 15:00] VITALS: BP 90/59
== END 2021-07-22 17:59 | disposition home or self-care (01) | DRG 720 ==
LOC: ER 20:24 → ED HOLD 07-18 02:47 → PCU 3S 07-18 22:05
PROVIDERS: ADMIT Internal Medicine; ATTEND Internal Medicine
PROC: 0W9G3ZZ Drainage of Peritoneal Cavity, Percutaneous Approach (ICD-10-PCS; principal; 2021-07-18)
DX: A41.9 Sepsis, unspecified organism (principal); G93.41 Metabolic encephalopathy; R34 Anuria and oliguria; I13.0 Hypertensive heart and chronic kidney disease with heart failure and stage 1 through stage 4 chronic kidney disease, or unspecified chronic kidney disease; E87.1 Hypo-osmolality and hyponatremia; K70.31 Alcoholic cirrhosis of liver with ascites; K72.90 Hepatic failure, unspecified without coma; I87.1 Compression of vein; I95.9 Hypotension, unspecified; I50.22 Chronic systolic (congestive) heart failure; D69.59 Other secondary thrombocytopenia; N18.9 Chronic kidney disease, unspecified; Z20.822 Contact with and (suspected) exposure to COVID-19; K57.90 Diverticulosis of intestine, part unspecified, without perforation or abscess without bleeding; K92.1 Melena; R00.0 Tachycardia, unspecified; E78.00 Pure hypercholesterolemia, unspecified; E87.6 Hypokalemia; F10.20 Alcohol dependence, uncomplicated; F12.90 Cannabis use, unspecified, uncomplicated; F41.9 Anxiety disorder, unspecified; F17.200 Nicotine dependence, unspecified, uncomplicated; I48.91 Unspecified atrial fibrillation; J44.9 Chronic obstructive pulmonary disease, unspecified; Z66 Do not resuscitate; Z82.49 Family history of ischemic heart disease and other diseases of the circulatory system; Z83.3 Family history of diabetes mellitus; Z88.8 Allergy status to other drugs, medicaments and biological substances
CPT/HCPCS: 36415; 71045; 74176; 80053; 81001; 82140; 82948; 83605; 83615; 83735; 84132; 84145; 84157; 84484; 85025; 85610; 85730; 86140; 86885; 86900; 86901; 87040; 87070; 87081; 87635; 89051; 93005; 97161; 97530; 99285; C9113; C9803; G0378; J0696; J1160; J1940; J2060; J2354; J2765; J3370; J3480; J3490; J7040; J7050; J7120; P9047

== ENCOUNTER 2021-12-13 08:59 | Day surgery (SDC) | payer MEDICAID ==
[~2021-12-13] VITALS: Ht 177.8 cm; Wt 85.5 kg
[~2021-12-13 08:59] MED LIST changes: +ESCI5TAB17 PO; +SPIR25TA5 PO
[2021-12-13] MEDS ORDERED: LIDOcaine 1%/PF 5ML 10 MG/ML VIAL SQ ONE (09:15)
[2021-12-13 09:17] VITALS: BP 123/86
[2021-12-13] MEDS ORDERED: albumin 25% 100mL bottle x 1 IV PRN (09:25)
[2021-12-13] MEDS ORDERED: GABA300T25 PO (09:29)
[2021-12-13] MEDS ORDERED: TRAZ-251 PO (09:29)
[2021-12-13 09:55] VITALS: BP 112/82
[2021-12-13 10:20] VITALS: BP 100/69
[2021-12-13 10:30] VITALS: BP 112/78
[2021-12-13] MEDS ORDERED: LIDOcaine 1%/PF 5ML 10 MG/ML VIAL IJ ONE (10:30)
[2021-12-13 10:45] VITALS: BP 108/70
== END 2021-12-13 11:15 | disposition home or self-care (01) ==
LOC: SSTAY O 08:59
PROVIDERS: ATTEND Radiology Diagnostic Radiology
DX: R18.8 Other ascites (principal); K74.60 Unspecified cirrhosis of liver; Z80.8 Family history of malignant neoplasm of other organs or systems; Z83.3 Family history of diabetes mellitus; Z82.49 Family history of ischemic heart disease and other diseases of the circulatory system; Z79.899 Other long term (current) drug therapy; Z88.8 Allergy status to other drugs, medicaments and biological substances; J44.9 Chronic obstructive pulmonary disease, unspecified; I50.9 Heart failure, unspecified; F41.9 Anxiety disorder, unspecified
CPT/HCPCS: 49083; J3490; J7030; P9047; Z7610

== ENCOUNTER 2021-12-27 08:10 | Day surgery (SDC) | payer MEDICAID ==
[~2021-12-27] VITALS: Ht 177.8 cm; Wt 75.7 kg
[~2021-12-27 08:10] MED LIST changes: +GABA300T25 PO; -LAN0.125T PO; +TRAZ-251 PO
[2021-12-27] MEDS ORDERED: LIDOcaine 1% 30ml preserv. free vial SQ STA (08:18)
[2021-12-27 08:21] VITALS: BP 115/67
[2021-12-27] MEDS ORDERED: PROP10TA10 PO ×2 (08:27→08:28)
[2021-12-27] MEDS ORDERED: HYDR12.55 PO (08:28)
[2021-12-27] MEDS ORDERED: albumin 25% 100mL bottle x 1 IV PRN (08:30)
[2021-12-27 10:04] VITALS: BP 120/81
[2021-12-27 10:19] VITALS: BP 107/71
[2021-12-27 10:34] VITALS: BP 107/79
[2021-12-27 10:49] VITALS: BP 112/80
== END 2021-12-27 10:55 | disposition home or self-care (01) ==
LOC: SSTAY O 08:10
PROVIDERS: ATTEND Radiology Vascular & Interventional Radiology
DX: R18.8 Other ascites (principal); K74.60 Unspecified cirrhosis of liver; J44.9 Chronic obstructive pulmonary disease, unspecified; I50.9 Heart failure, unspecified; F41.9 Anxiety disorder, unspecified; Z83.3 Family history of diabetes mellitus; Z82.49 Family history of ischemic heart disease and other diseases of the circulatory system; Z79.899 Other long term (current) drug therapy; Z88.8 Allergy status to other drugs, medicaments and biological substances; Z98.890 Other specified postprocedural states
CPT/HCPCS: 49083; J3490; P9047; A6258

== ENCOUNTER 2022-01-10 08:03 | Day surgery (SDC) | payer MEDICAID ==
[~2022-01-10] VITALS: Ht 177.8 cm; Wt 70.1 kg
[~2022-01-10 08:03] MED LIST changes: +HYDR12.55 PO; +PROP10TA10 PO
[2022-01-10] MEDS ORDERED: LIDOcaine 1% 30ml preserv. free vial SQ STA (08:17)
[2022-01-10 08:20] VITALS: BP 95/69
[2022-01-10] MEDS ORDERED: albumin 25% 100mL bottle x 1 IV PRN (08:20)
[2022-01-10] MEDS ORDERED: potassium PO (08:29)
--- NOTE | 2022-01-10 08:40 | NUR ---
Pt procedure cancelled per MD
== END 2022-01-10 08:40 | disposition home or self-care (01) ==
LOC: SSTAY O 08:03
PROVIDERS: ATTEND Preventive Medicine Aerospace Medicine
DX: R18.8 Other ascites (principal); K72.90 Hepatic failure, unspecified without coma
CPT/HCPCS: 76705; A6258; A6449

== ENCOUNTER 2022-05-16 06:57 | Day surgery (SDC) | payer MEDICAID ==
[~2022-05-16] VITALS: Ht 177.8 cm; Wt 77.7 kg
[~2022-05-16 06:57] MED LIST changes: -POTA8TAB58 PO; +potassium PO
[2022-05-16 07:05] VITALS: BP 125/75
[2022-05-16] MEDS ORDERED: TRAZ-256 PO (07:11)
[2022-05-16] MEDS ORDERED: DIGO-20 PO (07:13)
[2022-05-16] MEDS ORDERED: MIDAZolam 1 MG/ML 5ML VIAL ONE (07:25)
[2022-05-16] MEDS ORDERED: FENTANYL CITRATE/PF 50 MCG/1 ML VIAL ONE (07:25)
[2022-05-16] MEDS ORDERED: LIDOcaine Viscous 15ml cup ONE (07:26)
[2022-05-16 08:30] VITALS: BP 106/57
[2022-05-16 08:40] VITALS: BP 110/58
[2022-05-16 08:50] VITALS: BP 113/71
[2022-05-16 09:00] VITALS: BP 118/76
== END 2022-05-16 09:04 | disposition home or self-care (01) ==
LOC: GI LAB 06:57
PROVIDERS: ATTEND Specialist
DX: K22.70 Barrett's esophagus without dysplasia (principal); K44.9 Diaphragmatic hernia without obstruction or gangrene; K76.6 Portal hypertension; K31.89 Other diseases of stomach and duodenum
CPT/HCPCS: 43239; 99152; J2250; J3010; J7030; Z7512; 99153; A4620

== ENCOUNTER 2022-12-30 07:23 | Day surgery (SDC) | payer MEDICAID ==
[~2022-12-30 07:23] MED LIST changes: +DIGO-20 PO; -ESCI5TAB17 PO; -LISI2.5T89 PO; +LISI20TA28 PO; -METO-384 PO; -TRAZ-251 PO; +TRAZ-256 PO; -potassium PO
[2022-12-30 07:35] VITALS: BP 135/94; PULSE 115; RESP 14; TEMP 97.7; O2SAT 97
[2022-12-30] MEDS ORDERED: ESCI5TAB17 PO (07:41)
[2022-12-30] MEDS ORDERED: albumin 25% 100mL bottle x 1 IV PRN (07:50)
[2022-12-30] MEDS ORDERED: ALBU18HF2 INH (09:48)
--- NOTE | 2022-12-30 10:00 | NUR ---
Procedure cancelled due to no fluid.
== END 2022-12-30 10:00 | disposition home or self-care (01) ==
LOC: SSTAY O 07:23
PROVIDERS: ATTEND Radiology Diagnostic Radiology
DX: R18.8 Other ascites (principal); Z53.8 Procedure and treatment not carried out for other reasons; R14.0 Abdominal distension (gaseous); K74.60 Unspecified cirrhosis of liver; I50.9 Heart failure, unspecified; F41.9 Anxiety disorder, unspecified; I48.91 Unspecified atrial fibrillation; F10.20 Alcohol dependence, uncomplicated; Z98.890 Other specified postprocedural states; Z88.8 Allergy status to other drugs, medicaments and biological substances; Z79.01 Long term (current) use of anticoagulants; Z79.899 Other long term (current) drug therapy; Z83.3 Family history of diabetes mellitus; Z82.49 Family history of ischemic heart disease and other diseases of the circulatory system; Z80.8 Family history of malignant neoplasm of other organs or systems
CPT/HCPCS: 76705; A6258

== ENCOUNTER 2023-08-22 17:13 | Emergency (ER) | payer MEDICAID ==
[~2023-08-22 17:13] MED LIST changes: +ALBU18HF2 INH; +ESCI5TAB17 PO; -MULT-1085 PO
== END 2023-08-22 19:29 | disposition left against medical advice (07) ==
LOC: ER 17:14
DX: Z00.8 Encounter for other general examination (principal); Z53.21 Procedure and treatment not carried out due to patient leaving prior to being seen by health care provider
CPT/HCPCS: 93005; 99281